=== PATIENT | female | born 1985 | race African-American/Black ===

== ENCOUNTER 2018-12-23 21:45 | Inpatient (IN) | payer OTHER, SELFPAY ==
[~2018-12-23 21:45] MED LIST: Iopamidol 370 76% 100 ML VIAL ONE
--- NOTE | 2018-12-23 22:28 | RAD ---
EXAM: Chest one view: HISTORY: Shortness of breath/chest pain, headache COMPARISON: None FINDINGS: Heart size: Within normal limits. Lungs: Clear of acute process. No evidence for pneumonia, pleural effusion, acute edema, or pneumothorax, or other significant acute process. IMPRESSION: No significant acute intrathoracic disease.
[2018-12-23 22:33] LABS: Hemoglobin 10.9 g/dL (12.0-16.0); Mean Corpuscular Volume 82.2 fL (78.0-98.0); Red Blood Cell (RBC) Count 4.23 mill/uL (4.20-5.40); White Blood Cell (WBC) Count 7.5 thou/uL (4.8-10.8)
[2018-12-23 22:37] LABS: Prothrombin Time 12.7 SEC (12.0-14.7)
[2018-12-23 22:38] LABS: PTT 29.7 SEC (22.9-36.1)
[2018-12-23 22:46] LABS: ALT (SGPT) 13 U/L (8-55); AST (SGOT) 23 U/L (5-34); Albumin 3.9 g/dL (3.5-5.0); Alkaline Phosphatase 60 U/L (40-150); Anion Gap 13 mmol/L (10-20); BUN (Urea Nitrogen) 12 mg/dL (7.0-18.7); Bilirubin, Total 0.2 mg/dL (0.2-1.2); Calc. Creatinine Clearance 0 mL/min (70-130); Calcium 9.5 mg/dL (7.8-10.44); Carbon Dioxide 18 mmol/L (22-29); Chloride 110 mmol/L (98-107); Estimated GFR-MDRD 65; Globulin 3.3 g/dL (2.4-3.5); Glucose 88 mg/dL (70-105); Lipase 44 U/L (8-78); Magnesium 1.9 mg/dL (1.6-2.6); Protein, Total 7.2 g/dL (6.0-8.3); Sodium 137 mmol/L (136-145)
[2018-12-23 22:48] LABS: #Eosinphils 0.1 thou/uL (0.0-0.7); #Lymphocytes 2.2 thou/uL (1.20-3.40); #Monocytes 0.6 thou/uL (0.11-0.59); #Neutrophils 4.6 thou/uL (1.40-6.50); %Basophils 0.5 % (0.0-1.0); %Eosinophils 1.3 % (0.0-10.0); %Lymphocytes 28.9 % (21.0-51.0); %Monocytes 7.6 % (0.0-10.0); %Neutrophils 61.6 % (42.0-75.0); Anisocytosis SLIGHT = 6-15 cells (100X) (0-5/hpf); Hypochromia SLIGHT = 6-15 cells (100X) (0-5/hpf); MDiff Complete? YES; Mean Corpuscular HGB CONC 31.4 g/dL (32.0-36.0); Mean Corpuscular Hemoglobin 25.8 pg (27.0-31.0); Mean Platelet Volume 7.8 fL (7.4-10.4); Ovalocytes SLIGHT = 2-5 cells (100X) (0-1/hpf); Platelet Count 403 thou/uL (130-400); Polychromasia SLIGHT = 2-3 cells (100X) (0-2/hpf); RBC Distribution Width 20.4 % (11.5-14.5)
[2018-12-23] MEDS ORDERED: diphenhydrAMINE 50 MG/ML VIAL ONE (22:57)
[2018-12-23] MEDS ORDERED: Ketorolac Tromethamine 30 MG/ML VIAL ONE (22:57)
[2018-12-23] MEDS ORDERED: Metoclopramide HCl 10 MG/2 ML VIAL ONE (22:57)
--- NOTE | 2018-12-23 23:03 | CT ---
EXAM: Brain CTWithout contrast: HISTORY: Shortness of breath, chest pain, headache COMPARISON: None FINDINGS: No focal mass or midline shift. No intra or extra-axial hemorrhage. Sinus mucosal disease most marked involving the right maxillary sinus with probable air-fluid level. The mastoids are clear. IMPRESSION: No mass or bleed or other significant acute intracranial process. Sinus mucosal changes with probable air-fluid level in the right maxillary sinus.
--- NOTE | 2018-12-23 23:37 | CT ---
EXAM: CT angiogram of the head including 3-D rendering: HISTORY: Headache arteritis COMPARISON: None FINDINGS: Marginal intracranial arterial opacification. Visualized vertebral and basilar arteries: Small caliber right vertebral artery and dominant left carmel tebral artery. Right and left intracranial internal carotid arteries: Unremarkable. Right and left Anterior and posterior cerebral arteries: Unremarkable. Right and left middle cerebral arteries: Unremarkable. No evidence for an M1 segment occlusion. No evidence for intracranial aneurysm. No evidence for significant arterial narrowing or stenosis. IMPRESSION: No significant major branch occlusion or stenosis. No evidence for intracranial aneurysm. EXAM: CT angiogram of the neck including 3-D rendering: HISTORY: Chest pain, headache, history of arteritis. COMPARISON: None FINDINGS: There is very poor opacification particularly in the lower neck. The common carotid arteries do not h ave contrast within them from their origins up to the bifurcation region. The vertebral artery origins are poorly seen. Right subclavian artery is poorly seen. This may be explained by very poor t iming bolus. Although the possibility of total occlusion of both the right and left common carotid arteries as well as occlusive changes of the right subclavian artery are potential possibilities in a patient with known long-standing Takayasu's arteritis Right common, internal, and external carotid arteries:The visualized internal and external carotid ar teries are unremarkable. Left common, internal, and external carotid arteries:The visualized internal and external carotid art eries are unremarkable. Right and left vertebral arteries and basilar artery:Small caliber right vertebral artery. Soft tissue neck demonstrates no evidence for significant adenopathy, mass, or abnormal fluid collect ion. IMPRESSION: No contrast identified within the entire right and left common carotid arteries, the origins of the r ight and left vertebral arteries are poorly seen. Lack of contrast in the right subclavian artery with a very poorly defined innominate artery. Conceivably these could represent chronic long-standing occlusions. I still feel that there is some component of poor bolus timing which may account for some or all of these changes. Findings were discussed with Dr. Restrepo in the emergency room. Suggestion was made for a follow-up c arotid duplex ultrasound with attention to the common carotid arteries to differentiate between abnormal total occlusion versus poor bolus timing on the CTA exam. CODE CR
[2018-12-23] MEDS ORDERED: methylPREDNISolone Sod Succ/PF 125 MG/2 ML VIAL ONE (23:49)
[2018-12-23 23:58] LABS: Bilirubin Negative (Negative); Blood, Urine Negative (Negative); Clarity CLOUDY (Clear); Glucose, Urine (Dipstick) Negative (Negative); Leukocyte Negative (Negative); Nitrite Negative (Negative); Protein, Urine (Dipstick) Negative (Neg-Trace); Urobilinogen 0.2 mg/dL (0.2-1.0)
[2018-12-24 00:01] LABS: Pregnancy Test - Urine (BHCG) Negative (Negative); Pregu Control Background? CLEAR/WHITE (CLR/WHITE); Pregu Control Bar Appear? YES (CONTROL BAR); Specific Gravity 1.039 (1.002-1.036)
[2018-12-24] MEDS ORDERED: Acetaminophen 325 MG TAB PO PRN (01:43)
[2018-12-24] MEDS ORDERED: Ondansetron PF 4 MG/2 ML Vial IVP PRN (01:43)
[2018-12-24] MEDS ORDERED: Ondansetron ODT 4 MG TAB SL PRN (01:43)
[2018-12-24] MEDS ORDERED: HYDROcodone/Acetaminophen 5/325 mg Tablet PO PRN ×4 (01:43→21:18)
[2018-12-24] MEDS ORDERED: Bacteriostatic Water 30 ML VIAL FS PRN (02:17)
[2018-12-24 02:29] LABS: Troponin I Less than 0.010 ng/mL (< 0.028)
--- NOTE | 2018-12-24 03:16 | HP ---
PRIMARY CARE PHYSICIAN: [facility]. CHIEF COMPLAINT: Chest pain, vision blurring, headaches, and shortness of breath. History is mainly obtained by the patient's mother at bedside. The patient is a poor historian. Case has been discussed with admitting ER physician, Dr. Restrepo. Electronic medical records have been reviewed. HISTORY OF PRESENT ILLNESS: Ms. 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 She reports that this was diagnosed many years ago in [place] by angiogram. Since then, she has been on and off on steroids. She has known history of carotid artery occlusion and is on Xarelto, aspirin as well as Pletal. She has not been on steroids as she has recently moved to this area and is trying to establish care. She presented to the emergency room with multitude of various symptoms. She reports that she has been having some chest discomfort for the last 2 days as well as some headache for the last 2 weeks. She also reports on and off shortness of breath for one month. She also started having some blurred vision yesterday which has now improved. She denies any recent illnesses. She denies any fever or chills. She denies any leg claudication. She does have some jaw claudication and tenderness in the temporal area. She also reports anemia with hemoglobin 7.2 three weeks ago. She denies any history of blood clot in the lungs, but reports that she had a history of blood clot in the right arm in 2017. She reports compliance with her medications. With these multitude of symptoms and complicated past medical history without any record in our EMR: The patient presented to the ER. Her blood pressure was 145/90, pulse of 97, otherwise hemodynamically stable. She underwent a CT scan of the brain for complaints of headache, but did not show any acute stroke. She then underwent a CT angio of the head and neck, which showed complete occlusion of the right and left entire common carotid artery. Lack of contrast was also noticed in the right subclavian artery with a very poorly defined innominate artery. The radiologist felt that this could represent chronic long-standing occlusion. Her chest x-ray did not show any acute changes. She was found to have an ESR of 45, hemoglobin of 10.9 in the ER. Coagulation studies were unremarkable. Her GFR was 65 with creatinine slightly increased to 1.15. Urine test was negative. The patient was given 1 dose of Solu-Medrol 125 mg in the ER along with IV fluids and Toradol. She is now being admitted for further evaluation and care. The carotid Doppler ultrasound is ordered for the neck and upper chest for better evaluation of the arterial system. PAST MEDICAL HISTORY: 1. Takayasu with unknown extent. 2. History of right upper extremity DVT, currently on Xarelto. 3. History of stroke in 2014, on aspirin and Pletal. 4. Dyslipidemia. 5. Seizures. PAST SURGICAL HISTORY: 1. Angiogram in the past. 2. Cholecystectomy. 3. Back surgery in 2018. PSYCHIATRIC HISTORY: No anxiety. No depression. SOCIAL HISTORY: The patient is currently in school. She does not have insurance, but is trying to get Indigent care. She is currently living with her mother locally. No history of drug, tobacco, or alcohol abuse. FAMILY HISTORY: No significant family history of any bleeding or clotting disorders. No history of stroke or coronary artery disease in her family. HOME MEDICATIONS: As follows; 1. Xarelto 20 mg at bedtime. 2. Atorvastatin 20 mg at bedtime. 3. Pletal 100 mg p.o. b.i.d. 4. Topiramate 50 mg p.o. a.c. 5. Aspirin 81 mg daily. 6. Ferrous gluconate mg p.o. b.i.d. ALLERGIES: NO KNOWN MEDICATION ALLERGIES. REVIEW OF SYSTEMS: A 14-point review of systems is done and is negative except for those mentioned in the history and physical. LABORATORY DATA: Hemoglobin 10.9 which is largely microcytic in nature. Platelet count of 403, WBCs within normal limits. Coagulation studies within normal limits. Serum chemistry; chloride 110, bicarb 18, BUN 12, creatinine 1.15. Troponin less than 0.010. C-reactive protein less than 0.50. ESR is 45. Urinalysis shows trace ketones, otherwise unremarkable. Urine test is negative. Chest x-ray by my review shows no evidence of pleural effusion, edema, or infiltrate. CT scan of the brain by my review shows no acute hemorrhage or acute infarction or masses. CT angio as per the HPI. PHYSICAL EXAMINATION: VITAL SIGNS: Upon presentation; blood pressure 145/90, pulse of 97, respirations 16, saturating 98% on room air, afebrile. GENERAL: No acute distress, lying comfortably in bed, appears nontoxic. HEENT: Mucous membrane is moist and pink. No oropharyngeal exudate or erythema. Head is normocephalic and atraumatic. Pupils are equal and reactive to light and accommodation. Extraocular movement intact. NECK: Supple without any lymphadenopathy, JVD, or bruit. CHEST: Clear to auscultation without any wheezing, rales, or rhonchi. HEART: Rhythm is regular without any murmurs, rubs, or gallops. ABDOMEN: Soft, nontender, and nondistended with positive bowel sounds. EXTREMITIES: Free of any cyanosis, clubbing, or edema. NEUROLOGICAL: Nonfocal. SKIN: Free of any rashes or bruises. Feels warm and dry to touch. PSYCHIATRIC: Normal affect. IMPRESSION AND PLAN: 1. Chest pain. I am not sure if the patient's symptoms are because of her arteritis history. We will try to get an MRA of her chest to prevent further contrast exposure instead of a CT angio. Because of a variety of presenting symptoms and her past history of arteritis, we will treat her with high dose of IV steroids and request consultation by the Cardiovascular Surgery for possible angiogram and Rheumatology for further recommendation including use of immunosuppressants and establishment of care for long-term care of this patient. There are no signs or symptoms to suggest postop pulmonary embolism at this time. The patient is compliant with Xarelto, which will be restarted. 2. Headache. The patient has complete occlusion of bilateral common carotid arteries consistent with her history of Takayasu arteritis. She will be treated with IV steroids to reduce inflammation at this time. Once again, for the angiogram and further followup, we ordered to establish full extent of her disease. We will try to get her results from her physician in [place]. Meanwhile, we will continue aspirin statin, Pletal, and Xarelto. 3. Chronic anemia. She has microcytic hypochromic anemia. We will continue her iron supplements for now. 4. History of seizure disorder. Continue topiramate. 5. History of deep venous thrombosis upper extremity. Continue with Xarelto for now. 6. History of stroke. The patient's presenting symptoms are not consistent with acute cerebrovascular accident. Continue aspirin, statin, Pletal, and Xarelto for now. She is at high risk for stroke. 7. Deep venous thrombosis and gastrointestinal prophylaxis. The patient is already on Xarelto. DISPOSITION: Ms. Luo is currently being admitted to the hospital for possible acute decompensation of Takayasu arteritis. She will be treated with high-dose steroids and we will request consultation with Rheumatology as she has a complicated past medical history of her rare diagnosis. She will also need to establish care locally with the printing press operator apprentice and cardiovascular surgery closely. I have discussed her care with her mother at bedside, who verbalized understanding. Estimated length of stay at this time is at least 2 to 3 midnights. Job ID: [id number]
[2018-12-24 05:15] LABS: Anion Gap 10 mmol/L (10-20); BUN (Urea Nitrogen) 17 mg/dL (7.0-18.7); Calc. Creatinine Clearance 96 mL/min (70-130); Calcium 9.1 mg/dL (7.8-10.44); Carbon Dioxide 20 mmol/L (22-29); Chloride 111 mmol/L (98-107); Estimated GFR-MDRD 65; Glucose 111 mg/dL (70-105); Potassium 4.2 mmol/L (3.5-5.1); Sodium 137 mmol/L (136-145)
[2018-12-24 05:16] LABS: #Lymphocytes 0.6 thou/uL (1.20-3.40); #Neutrophils 6.5 thou/uL (1.40-6.50); %Lymphocytes 8.6 % (21.0-51.0); %Monocytes 0.6 % (0.0-10.0); %Neutrophils 90.8 % (42.0-75.0); Elliptocytes SLIGHT = 2-5 cells (100X) (0-1/hpf); Hemoglobin 11.1 g/dL (12.0-16.0); Hypochromia SLIGHT = 6-15 cells (100X) (0-5/hpf); MDiff Complete? YES; Mean Corpuscular HGB CONC 31.6 g/dL (32.0-36.0); Mean Corpuscular Hemoglobin 26.5 pg (27.0-31.0); Mean Corpuscular Volume 83.9 fL (78.0-98.0); Mean Platelet Volume 8.1 fL (7.4-10.4); Platelet Count 381 thou/uL (130-400); RBC Distribution Width 20.2 % (11.5-14.5); White Blood Cell (WBC) Count 7.2 thou/uL (4.8-10.8)
[2018-12-24 05:20] LABS: Troponin I Less than 0.010 ng/mL (< 0.028)
[2018-12-24] MEDS ORDERED: predniSONE 20 MG TAB PO SCH (08:00)
[2018-12-24] MEDS: Aspirin 81 mg Enteric Coated Tablet PO SCH (08:17)
[2018-12-24] MEDS: Cilostazol 100 MG TAB PO SCH ×2 (08:17→15:53)
[2018-12-24] MEDS: Ferrous Gluconate 324 MG TAB PO SCH ×2 (08:18→20:03)
[2018-12-24] MEDS: methylPREDNISolone Sod Succ/PF 125 MG/2 ML VIAL IVP SCH ×2 (08:18→20:03)
[2018-12-24] MEDS: Topiramate 25 MG TAB PO SCH ×3 (08:29→16:05)
--- NOTE | 2018-12-24 08:49 | ULT ---
CAROTID ULTRASOUND WITH DOPPLER: Date: 12/24/18 HISTORY: Abnormal CT angiogram of neck. Bilateral carotid occlusion is suspected. COMPARISON: None. CORRELATION: CT angiogram of neck dated 12/23/18. TECHNIQUE: Thompson scale, color flow, Doppler imaging, and spectral waveform analysis performed of the cervical carotid and vertebral arteries. FINDINGS: RIGHT CAROTID: There is occlusion of the distal common carotid artery. There is retrograde flow in the external tavares tid artery. The internal carotid artery has appropriate directional flow. Peak systolic velocity in t he internal carotid artery is 30.3 cm/second. LEFT CAROTID: There is occlusion of the left common carotid artery. There is reversal of flow in the external carot id artery. There is appropriate directional flow of the internal carotid artery. Peak systolic veloci ty in the internal carotid artery is 93.6 cm/second. Right vertebral artery is not seen. There is appropriate directional flow in the left vertebral arter y. IMPRESSION: Bilateral common carotid artery occlusion. There is reversal of flow in bilateral external carotid ar teries, which likely supply the left and right internal carotid artery, which have appropriate direct ional flow. POS: OFF
--- NOTE | 2018-12-24 13:11 | MRI ---
MRA OF THE CHEST WITH AND WITHOUT CONTRAST: INDICATION: History of Takayasu arteritis, and chest pain. COMPARISON: CTA of the head and neck dated 12/23/2018. CONTRAST: 20 cc of MultiHance. FINDINGS: As seen on the comparison CTA examination is nonvisualization of the internal carotid arteries consis tent with complete occlusion. There is mild multifocal narrowing involving the proximal left subclav razia artery. There is complete occlusion of the mid to distal right subclavian artery. Remaining vis ualized descending thoracic aorta, aortic arch, and ascending aorta demonstrate normal caliber. Visu alized aspects of the celiac and SMA arteries are widely patent. IMPRESSION: 1. Complete occlusion of the internal carotid arteries. 2. 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 3. Multifocal mild narrowing involving the proximal left subclavian artery. POS: CET
--- NOTE | 2018-12-24 17:18 | CON ---
DATE OF CONSULTATION: 12/24/2018 REQUESTING PHYSICIAN: Marta Dumont MD CHIEF COMPLAINT: Headache, blurry vision, and chest pain. HISTORY OF PRESENT ILLNESS: The patient is a 33-year-old black woman with Takayasu arteritis. About 6 months ago, she moved here from [place] where the diagnosis was made. She presented last night with headache, blurry vision, and chest pain. Her arteritis tends to have episodic flares that were treated with steroids, and her most recent flare was about 3 weeks ago. She says that she was seen at [facility], put on steroids for about a week. Prior to that, shortly before leaving [place], her last flare up was about 6 months ago. She says that she has a known occlusion of both carotid arteries and compromise of her subclavians. The history of previous strokes and a known DVT in the right arm was elicited. A CT angiography was done as part of her ER evaluation, which showed occlusion of her carotid arteries. Wording on the radiologist's report discussed consideration for vascular surgical evaluation and conventional arteriography to address the potential for her occlusive disease being an artifact of the CT angiography technique. The patient has not had any focal symptoms and reports longstanding knowledge that her carotids are occluded. PAST MEDICAL HISTORY: Also significant for dyslipidemia and seizures. HOME MEDICATIONS: 1. Xarelto. 2. Atorvastatin. 3. Pletal. 4. Topamax. 5. Baby aspirin. 6. Iron. ALLERGIES: SHE DENIES ANY MEDICAL ALLERGIES. HABITS: She does not smoke. FAMILY HISTORY: Negative for any known bleeding or hypercoagulable disease. No history of stroke or coronary artery disease. REVIEW OF SYSTEMS: Only pertinent for her headache, blurred vision, and chest discomfort. PHYSICAL EXAMINATION: GENERAL: She is now comfortable appearing. VITAL SIGNS: Temperature is 98, heart rate is 85, blood pressure is 117/73. I was not able to palpate any radial pulses, but she has easily palpable dorsalis pedis pulses. Her CT angiography shows occlusion of both common carotids with intact carotid bifurcations bilaterally. Ultrasonography demonstrates retrograde flow through the external carotids into the internal carotids. She also has occluded subclavian beyond the vertebrals on the left and at the origin on the right. IMPRESSION AND RECOMMENDATIONS: I had been consulted to perform arteriography. She does not have ischemic extremities and her carotid occlusions are apparently well documented. They are at least corroborated by ultrasonography here and I do not think that arteriography is indicated. Job ID: [id number]
[2018-12-24] MEDS ORDERED: Atorvastatin Calcium 20 MG TAB PO SCH (21:00)
[2018-12-24] MEDS ORDERED: Rivaroxaban 10 MG TAB PO SCH (21:00)
[2018-12-25 06:25] LABS: Hemoglobin 10.4 g/dL (12.0-16.0); Platelet Count 371 thou/uL (130-400)
[2018-12-25 07:14] LABS: Anion Gap 11 mmol/L (10-20); BUN (Urea Nitrogen) 9 mg/dL (7.0-18.7); Calc. Creatinine Clearance 136 mL/min (70-130); Calcium 8.8 mg/dL (7.8-10.44); Carbon Dioxide 16 mmol/L (22-29); Chloride 114 mmol/L (98-107); Estimated GFR-MDRD Greater than 90; Glucose 106 mg/dL (70-105); Potassium 3.8 mmol/L (3.5-5.1); Sodium 137 mmol/L (136-145)
[2018-12-25] MEDS ORDERED: Topiramate 25 MG TAB PO SCH (09:00)
[2018-12-25] MEDS: Cilostazol 100 MG TAB PO SCH ×2 (09:08→17:11)
[2018-12-25] MEDS: Aspirin 81 mg Enteric Coated Tablet PO SCH (09:09)
[2018-12-25] MEDS: Ferrous Gluconate 324 MG TAB PO SCH (09:09)
[2018-12-25] MEDS: methylPREDNISolone Sod Succ/PF 125 MG/2 ML VIAL IVP SCH (09:09)
--- NOTE | 2018-12-25 09:12 | PDOC.EVN ---
Event Note - Event Note Event Note: spoke with pt and family about pt's medical illness. She was dx with this about 2y ago. I did discuss the case with rheumatology who will come by to see her yudy. will get records from [place].
[2018-12-25] MEDS ORDERED: Methotrexate Sodium 2.5 MG TAB PO SCH (10:30)
[2018-12-25] MEDS ORDERED: Acetaminophen/Codeine 30-300mg Tablet PO PRN (10:42)
[2018-12-25 11:16] LABS: Cardiac Risk 1.9 (Less than 4.5)
[2018-12-25 11:33] LABS: HBCM Index 0.05 S/CO (0-0.79); HBSAg Index 0.31 S/CO (0-0.99); Hep A IgM AB Non-Reactive (NonReactive); Hep A IgM S/CO 0.13 S/CO (0-0.79); Hep B Surf Ag Non-Reactive S/CO (NonReactive); Hep C IgG Ab Non-Reactive (NonReactive); Hep C Index 0.05 S/CO (0-0.79); Hepatitis B Core IgM Abs Non-Reactive (NonReactive)
[2018-12-25 12:42] VITALS: BMI 33.3
[2018-12-25 18:33] VITALS: BP 114/70; TEMP 98.6
--- NOTE | 2018-12-26 04:55 | DIS ---
DATE OF ADMISSION: 12/24/2018 DATE OF DISCHARGE: 12/25/2018 DISCHARGE DIAGNOSES: 1. Chest pain. 2. Headaches. 3. Chronic anemia. 4. History of seizure disorder. 5. Deep vein thrombosis. 6. Takayasu. HOSPITAL COURSE: The patient is a 33-year-old female who has been diagnosed with Takayasu about 2 years ago according to her at [facility], this is in [place]. She also has been following in [facility] in [place]. The patient initially came in with some chest pain and a headache that she had a CT angio, which did not show any acute abnormalities, but her CT angio did indicate no contrast identification within the entire right and left common carotid origins, also right and left vertebral arteries are poorly seen. Lack of contrast seen in the right subclavian artery with right poorly defined innominate artery. Conceivably these could represent chronic long-standing occlusions. At this time, carotid Dopplers were ordered based on recommendations per Radiology. The Dopplers indicated bilateral common carotid artery occlusion. There is a reverse of flow in bilateral external carotid arteries which likely supplies the left than the right internal carotid arteries. She also had a chest MRA which indicated complete occlusion of the internal carotid arteries, complete occlusion of the right subclavian artery and multifocal mild narrowing involving the proximal left subclavian artery. The patient at this time was seen by CV surgeon and given this chronic occlusions, there was no intervention that was done. The patient's symptoms continued to improve. Her troponin x3 were negative. Also, she was seen by Rheumatology and there was a question that why she was not started on any kind of immunotherapy, so she at this time was started on methotrexate. I did educate her about not getting while she was on methotrexate. Her level was negative. The patient understood. Also, she will follow up with Rheumatology and primary in the next couple of weeks. DISCHARGE MEDICATIONS: She was on: 1. Pepcid 20 b.i.d. 2. Folic acid 1 mg daily. 3. Methotrexate, she was given a dose of 10 mg and she will take it every 7 days. 4. She was given a steroid dose pack. 5. She was on Xarelto 20 mg daily. 6. Atorvastatin one tablet p.o. at bedtime. 7. Topamax 1 p.o. a.c. 8. Cilostazol 100 mg b.i.d. 9. Iron 324 b.i.d. 10. Aspirin 81 mg daily. PHYSICAL EXAMINATION: VITAL SIGNS: Temperature 98.6, pulse 85, respirations 18, 98% on room air, blood pressure 114/70. GENERAL: She is awake, alert, and oriented x3. Does not appear in any distress. CV: S1 and S2 present. No murmurs, rubs, or gallops. ABDOMEN: Soft, nontender. Bowel sounds are present x2. EXTREMITIES: No edema. DISCHARGE INSTRUCTIONS: Again, she will be discharged home. She will follow up with her primary and Rheumatology. I have advised her not to get while on methotrexate and also medication compliance. I also have told her to take her prednisone with food and we did get records from [facility]; however, we did send for records from the [facility] in [place] that is where she was diagnosed with the Takayasu. Job ID: [id number]
[2018-12-26] MEDS ORDERED: Folic Acid 1 MG TAB PO SCH (09:00)
[2019-01-01] MEDS ORDERED: Methotrexate Sodium 2.5 MG TAB PO SCH (09:00)
== END 2018-12-25 18:45 | disposition home or self-care (01) | DRG 547 ==
LOC: ERS 21:45 → 2NO 12-24 01:05
PROVIDERS: ADMIT Internal Medicine; ATTEND Internal Medicine
DX: M31.4 Aortic arch syndrome [Takayasu] (principal); E78.5 Hyperlipidemia, unspecified; I65.23 Occlusion and stenosis of bilateral carotid arteries; G40.909 Epilepsy, unspecified, not intractable, without status epilepticus; D64.9 Anemia, unspecified; Z90.49 Acquired absence of other specified parts of digestive tract; Z79.899 Other long term (current) drug therapy; Z86.718 Personal history of other venous thrombosis and embolism; Z79.01 Long term (current) use of anticoagulants; Z79.82 Long term (current) use of aspirin
CPT/HCPCS: 36415; 70450; 70496; 70498; 71045; 71555; 80048; 80053; 80061; 80074; 81003; 81025; 83690; 83735; 84484; 84702; 85014; 85018; 85025; 85049; 85610; 85652; 85730; 86140; 86850; 86900; 86901; 93005; 93880; C8911; J1200; J1885; J2765; J2930; J8610; Q9967

== ENCOUNTER 2019-05-06 18:28 | Emergency (ER) | payer OTHER, SELFPAY ==
[~2019-05-06 18:28] MED LIST changes: -Iopamidol 370 76% 100 ML VIAL ONE; +Iopamidol-370 76% 500 ML 1 ML ONE
[2019-05-06 19:23] LABS: #Eosinphils 0.1 thou/uL (0.0-0.7); #Lymphocytes 1.8 thou/uL (1.20-3.40); #Monocytes 0.6 thou/uL (0.11-0.59); #Neutrophils 4.2 thou/uL (1.40-6.50); %Basophils 0.4 % (0.0-1.0); %Eosinophils 1.2 % (0.0-10.0); %Lymphocytes 26.3 % (21.0-51.0); %Monocytes 9.4 % (0.0-10.0); %Neutrophils 62.7 % (42.0-75.0); Hemoglobin 9.5 g/dL (12.0-16.0); Mean Corpuscular HGB CONC 32.4 g/dL (32.0-36.0); Mean Corpuscular Hemoglobin 26.5 pg (27.0-31.0); Mean Platelet Volume 6.9 fL (7.4-10.4); Platelet Count 438 thou/uL (130-400); RBC Distribution Width 15.4 % (11.5-14.5); Red Blood Cell (RBC) Count 3.57 mill/uL (4.20-5.40); White Blood Cell (WBC) Count 6.7 thou/uL (4.8-10.8)
[2019-05-06 19:31] LABS: BHCG - Serum Negative (NEGATIVE); Pregs Control Background? CLEAR/WHITE (CLR/WHITE); Pregs Control Bar Appear? YES (CONTROL BAR)
[2019-05-06 19:38] LABS: INR-International Normal Ratio 1.1; PTT 31.3 SEC (22.9-36.1)
[2019-05-06 19:42] LABS: ALT (SGPT) 9 U/L (8-55); AST (SGOT) 18 U/L (5-34); Albumin 3.9 g/dL (3.5-5.0); Alkaline Phosphatase 53 U/L (40-110); Anion Gap 10 mmol/L (10-20); BUN (Urea Nitrogen) 10 mg/dL (7.0-18.7); Bilirubin, Total 0.2 mg/dL (0.2-1.2); Calc. Creatinine Clearance 0 mL/min (70-130); Calcium 8.7 mg/dL (7.8-10.44); Carbon Dioxide 23 mmol/L (22-29); Chloride 111 mmol/L (98-107); Estimated GFR-MDRD 74; Globulin 3.1 g/dL (2.4-3.5); Glucose 93 mg/dL (70-105); Potassium 3.6 mmol/L (3.5-5.1); Sodium 140 mmol/L (136-145)
--- NOTE | 2019-05-06 20:14 | CT ---
CT head noncontrast HISTORY: Weakness. Altered mental status. Nausea. COMPARISON: 12/23/2018. FINDINGS: There is no evidence of acute intracranial hemorrhage or infarct. The ventricles appear nor mal in size, shape and position. There is no mass effect or shift of midline structures. Mucosal thickening within the left maxillary sinus. IMPRESSION: No acute intracranial abnormalities are demonstrated.
--- NOTE | 2019-05-06 20:31 | CT ---
CT arteriogram neck with IV contrast and 3-D imaging CT arteriogram head with IV contrast and 3-D imaging CT brain with IV contrast HISTORY: Weakness. Tongue numbness. Carotid occlusion. COMPARISON: 12/23/2018. FINDINGS: Occlusion of the origin of each common carotid artery at the aortic arch is again demonstra tiana. The proximal right subclavian artery is also occluded with reconstitution via a small right vertebral artery. The left vertebral artery remains widely patent to the level of an intact [place]. There is also some collateralization from the external carotid arteries to each small internal carotid artery. Good flow into each cerebral and cerebellar system. No focal filling defects or aneurysm evident. No enhancing brain lesions. Fluid layers within the left maxillary sinus with mucosal thickening evident. IMPRESSION: Chronic occlusion of the left carotid artery and the right brachiocephalic artery and rig ht common carotid artery. Intracranial arterial flow via collaterals from the left vertebral artery and the external carotid arteries. No acute intracranial abnormalities are demonstrated. Findings are stable. Left maxillary sinusitis.
[2019-05-06 21:07] LABS: Bacteria/HPF None Seen HPF (None Seen); Bilirubin Negative (Negative); Blood, Urine 1+ (Negative); Clarity Clear (Clear); Glucose, Urine (Dipstick) Normal (Negative); Leukocyte Negative Leu/uL (Negative); Nitrite Negative (Negative); Protein, Urine (Dipstick) Negative (Neg-Trace); RBC/HPF 21-50 HPF (0-3); Squamous Epithelial None Seen HPF (0-3); Urobilinogen Normal mg/dL (Less than 2); WBC/HPF None Seen HPF (0-3)
== END 2019-05-06 21:16 | disposition home or self-care (01) ==
LOC: ERS 18:28
DX: R53.1 Weakness (principal); E78.5 Hyperlipidemia, unspecified; Z86.73 Personal history of transient ischemic attack (TIA), and cerebral infarction without residual deficits; Z79.82 Long term (current) use of aspirin; Z79.899 Other long term (current) drug therapy; Z79.01 Long term (current) use of anticoagulants
CPT/HCPCS: 70450; 70496; 70498; 80053; 81003; 81015; 82550; 84484; 84703; 85025; 85610; 85730; 87086; 93005; Q9967

== ENCOUNTER 2019-07-08 16:29 | Inpatient (IN) | payer MEDICAID, SELFPAY ==
[2019-07-08 16:57] LABS: #Eosinphils 0.1 thou/uL (0.0-0.7); #Monocytes 0.6 thou/uL (0.11-0.59); #Neutrophils 3.9 thou/uL (1.40-6.50); %Basophils 0.7 % (0.0-1.0); %Eosinophils 0.9 % (0.0-10.0); %Lymphocytes 30.5 % (21.0-51.0); %Monocytes 8.4 % (0.0-10.0); %Neutrophils 59.5 % (42.0-75.0); Hemoglobin 8.2 g/dL (12.0-16.0); Mean Corpuscular HGB CONC 31.3 g/dL (32.0-36.0); Mean Corpuscular Hemoglobin 22.6 pg (27.0-31.0); Mean Corpuscular Volume 72.3 fL (78.0-98.0); Mean Platelet Volume 7.7 fL (7.4-10.4); Platelet Count 555 thou/uL (130-400); RBC Distribution Width 16.8 % (11.5-14.5); Red Blood Cell (RBC) Count 3.63 mill/uL (4.20-5.40); White Blood Cell (WBC) Count 6.5 thou/uL (4.8-10.8)
[2019-07-08 17:04] LABS: BHCG - Serum Negative (NEGATIVE); Pregs Control Background? CLEAR/WHITE (CLR/WHITE); Pregs Control Bar Appear? YES (CONTROL BAR)
[2019-07-08 17:14] LABS: Anisocytosis SLIGHT = 6-15 cells (100X) (0-5/hpf); Elliptocytes SLIGHT = 2-5 cells (100X) (0-1/hpf); Hypochromia SLIGHT = 6-15 cells (100X) (0-5/hpf); MDiff Complete? YES; Microcytosis SLIGHT = 6-15 cells (100X) (0-5/hpf); Ovalocytes SLIGHT = 2-5 cells (100X) (0-1/hpf); Platelet Morphology Comment Appears Increased; Poikilocytosis SLIGHT = 6-15 cells (100X) (0-5/hpf); Polychromasia SLIGHT = 2-3 cells (100X) (0-2/hpf); Schistocytes SLIGHT = 2-5 cells (100X) (0-1/hpf); Target Cells SLIGHT = 2-5 cells (100X) (0-1/hpf); Tear Drops SLIGHT = 2-5 cells (100X) (0-1/hpf)
[2019-07-08 17:24] LABS: ALT (SGPT) 10 U/L (8-55); AST (SGOT) 29 U/L (5-34); Albumin 4.1 g/dL (3.5-5.0); Alkaline Phosphatase 54 U/L (40-110); Anion Gap 10 mmol/L (10-20); BUN (Urea Nitrogen) 7 mg/dL (7.0-18.7); Bilirubin, Total 0.3 mg/dL (0.2-1.2); Calc. Creatinine Clearance 0 mL/min (70-130); Calcium 8.8 mg/dL (7.8-10.44); Carbon Dioxide 22 mmol/L (22-29); Chloride 110 mmol/L (98-107); Estimated GFR-MDRD 72; Globulin 3.7 g/dL (2.4-3.5); Glucose 92 mg/dL (70-105); Potassium 4.1 mmol/L (3.5-5.1); Protein, Total 7.8 g/dL (6.0-8.3); Sodium 138 mmol/L (136-145)
[2019-07-08 17:36] LABS: Bilirubin Negative (Negative); Blood, Urine Negative (Negative); Clarity Clear (Clear); Glucose, Urine (Dipstick) Normal (Negative); Leukocyte Negative Leu/uL (Negative); Nitrite Negative (Negative); Protein, Urine (Dipstick) Negative (Neg-Trace); Urobilinogen Normal mg/dL (Less than 2)
--- NOTE | 2019-07-08 18:43 | CT ---
CT head noncontrast HISTORY: Headache. COMPARISON: 05/06/2019. FINDINGS: There is no evidence of acute intracranial hemorrhage or infarct. Ventricles appear normal in size, shape and position. There is no mass effect or shift of midline structures. Visualized paranasal sinuses now well aerated. IMPRESSION: Normal exam.
[2019-07-08 20:26] LABS: INR-International Normal Ratio 1.1
[2019-07-08] MEDS ORDERED: predniSONE 20 MG TAB ONE (21:26)
[2019-07-08 21:47] LABS: Troponin I Less than 0.010 ng/mL (< 0.028)
[2019-07-09] MEDS ORDERED: Acetaminophen 650 MG Suppository PR PRN (00:33)
[2019-07-09 00:53] LABS: Troponin I 0.025 ng/mL (< 0.028)
[2019-07-09] MEDS ORDERED: Acetaminophen 325 MG TAB ONE (01:03)
[2019-07-09] MEDS: Acetaminophen 325 MG TAB PO PRN ×3 (01:08→19:40)
--- NOTE | 2019-07-09 02:19 | HP ---
TIME OF ASSESSMENT: 2300 hours. CHIEF COMPLAINT: Syncope, shortness of breath, and chest pain. HISTORY OF PRESENT ILLNESS: Ms. Luo is a pleasant 33-year-old woman with a known history of Takayasu arteritis, who presents following a syncopal episode that occurred yesterday evening. The patient states she was in bed and got up to use a restroom and felt lightheaded, but continued to walk to use the bathroom and fell backwards. She states she was able to get up on her knees. She does not recall if she had any loss of consciousness and if she did, it was very brief. She states that her sister came and helped her back into bed. Reports feeling lightheaded and "woozy" throughout the day today, prompting her to come into the emergency department. She reports having mild chest discomfort since yesterday and states that it occurs whenever she takes a deep breath in. She states it is in the center of her chest. She denies any cough or hemoptysis. She does have a known history of right upper extremity DVT and is on Xarelto. She reports feeling short of breath for the last several days. Denies any fevers, chills, or sweats. No nausea or vomiting. No abdominal pain. Denies any urinary symptoms. Does report having heavy menses and her last menstrual period started on June 26. All other review of systems is negative. In the emergency department, she underwent laboratory studies that showed a white count of 6.5, hemoglobin 8.2 compared to 9.5 in April, hematocrit 26.3, MCV 72.3, platelets 555. Sodium 138, potassium 4.1, chloride 110, BUN 7, creatinine 1.06, GFR 72, glucose 92, calcium 9.8. LFTs unremarkable. Troponin negative x2. Albumin 4.1. Serum negative. Urinalysis unremarkable. She had imaging studies including a CT of the brain, which showed no evidence of acute intracranial hemorrhage or infarct. Ventricles appear normal in size, shape, and position. No mass effect, shift, or midline structures. A CT angiogram of the chest was done as well, and per Dr. Carcamo, it showed severe large vessel vasculitis. She was therefore treated with 60 mg of prednisone p.o. Also given 1 L of normal saline. The patient was last admitted in December 2018, at which time she had presented with chest pain, headaches, and Takayasu. At that time, she had been seen by Rheumatology. Apparently, methotrexate had been recommended, however, the patient has not been on this. She was given a dose of 10 mg and I advised to take it every seven days, also discharged on a steroid dose pack. Plans were for her to follow up with Hematology as an outpatient, but it does not appear that she has been seen since then. PAST MEDICAL HISTORY: 1. Takayasu arteritis. 2. Right upper extremity DVT. 3. CVA in 2014. 4. Hyperlipidemia. 5. History of seizures. PAST SURGICAL HISTORY: 1. Angiogram. 2. Cholecystectomy. 3. Orthopedic surgery. 4. Spinal surgery in 2018. SOCIAL HISTORY: The patient lives alone. Denies any alcohol consumption or illicit drug use. No tobacco use. PHYSICAL EXAMINATION: GENERAL: The patient appears well developed, well nourished, who is in no acute distress. VITAL SIGNS: Temperature 99.1, pulse 102, blood pressure 125/76, respirations 20, and O2 saturation 100% on room air. HEENT: Normocephalic and atraumatic. Pupils are equal, round, and reactive to light. Sclerae icterus. Oropharynx is clear. NECK: Supple. No lymphadenopathy. LUNGS: Clear to auscultation bilaterally without wheezes, rales, or rhonchi. CARDIAC: Regular rate and rhythm without audible murmurs, rubs, or gallops. ABDOMEN: Soft, nontender, nondistended. Normoactive bowel sounds present. EXTREMITIES: No lower leg swelling or edema. MUSCULOSKELETAL: The patient with discomfort involving the right hip region. Mild discomfort in the hip with straight leg raise passive and against resistance. No rotation or extremity shortening noted. NEUROLOGIC: Alert and oriented x3. SKIN: Warm and dry. INVESTIGATIONS: As mentioned above in HPI. IMPRESSION AND PLAN: Ms. Luo is a pleasant 33-year-old woman, who is being admitted for management of the following. 1. Takayasu vasculitis. We will continue with 60 mg of prednisone p.o. daily. Consultation placed to Rheumatology for further recommendations. 2. Syncope. The patient is known to have a history of bilateral common carotid artery occlusion based on investigations done during her admission in December 2018. No indication to repeat these studies at this present time. We will obtain an echocardiogram, which she has not had done in over a year. Further imaging as per Day Team. Orthostatic blood pressure requested. The patient is being given IV fluids. She is anemic, which could be a contributing factor. Continue to monitor her hemoglobin. 3. Chronic anemia. Hemoglobin slightly lower from what it was last. No active signs or symptoms of bleeding. Continue to monitor. Consider blood transfusion if needed. She has required blood transfusions in the past. Iron studies have been requested. The patient previously on iron, but states she stops intermittently due to feeling "sick" to her stomach when she is on iron. 4. Deep venous thrombosis. Continue anticoagulation again with no signs or symptoms of bleeding. If she does develop any signs of bleeding, we will need to consider holding anticoagulation. 5. History of seizure disorder. Resume home medications. Goals verified. 6. Chest pain. The patient states it is only when she takes a deep breath. Troponins negative x2. EKG done in the emergency department showed sinus tachycardia with a heart rate of 101. No ST changes or T-wave abnormalities. Continue to trend troponins. 7. Gastrointestinal prophylaxis with famotidine. 8. Code status full. Surrogate decision maker is her mother, Radha Luo. The patient's case was discussed with Dr. Mcqueen, who agrees with the plan of care as described above. Job ID: [id number]
[2019-07-09 05:10] LABS: Iron 10 ug/dL (50-170); Iron Binding Capacity, Total 396 mcg/dL (265-497)
[2019-07-09 05:11] LABS: Anion Gap 9 mmol/L (10-20); BUN (Urea Nitrogen) 9 mg/dL (7.0-18.7); Calc. Creatinine Clearance 0 mL/min (70-130); Calcium 8.9 mg/dL (7.8-10.44); Carbon Dioxide 19 mmol/L (22-29); Chloride 114 mmol/L (98-107); Estimated GFR-MDRD Greater than 90; Glucose 129 mg/dL (70-105); Iron 9 ug/dL (50-170); Iron Binding Capacity, Total 410 mcg/dL (265-497); Potassium 4.8 mmol/L (3.5-5.1); Sodium 137 mmol/L (136-145); Transferrin, Serum 328 mg/dL (180-382)
[2019-07-09 05:13] LABS: #Lymphocytes 0.7 thou/uL (1.20-3.40); #Neutrophils 6.1 thou/uL (1.40-6.50); %Basophils 0.2 % (0.0-1.0); %Eosinophils 0.1 % (0.0-10.0); %Lymphocytes 10.4 % (21.0-51.0); %Monocytes 0.5 % (0.0-10.0); %Neutrophils 88.9 % (42.0-75.0); Hemoglobin 8.7 g/dL (12.0-16.0); Mean Corpuscular HGB CONC 30.7 g/dL (32.0-36.0); Mean Corpuscular Hemoglobin 22.5 pg (27.0-31.0); Mean Corpuscular Volume 73.2 fL (78.0-98.0); Mean Platelet Volume 7.4 fL (7.4-10.4); Platelet Count 536 thou/uL (130-400); RBC Distribution Width 16.7 % (11.5-14.5); Red Blood Cell (RBC) Count 3.87 mill/uL (4.20-5.40); White Blood Cell (WBC) Count 6.9 thou/uL (4.8-10.8)
[2019-07-09 05:47] LABS: Ferritin Less than 2.00 ng/mL (10-291); Vitamin B12 309 pg/mL (211-911)
[2019-07-09 07:25] VITALS: BMI 32.5
--- NOTE | 2019-07-09 07:31 | RAD ---
EXAM: 2 views of the right hip HISTORY: Right hip pain COMPARISON: None FINDINGS: 2 views of the right hip shows no evidence of acute fracture or dislocation. No degenerativ e changes are seen. No soft tissue swelling is present. Contrast is seen in the urinary bladder from recent contrast administration. IMPRESSION: No evidence of acute osseous abnormality.
--- NOTE | 2019-07-09 07:31 | RAD ---
Exam: Single view of the pelvis HISTORY: Pelvic and hip pain COMPARISON: None FINDINGS: A single view the pelvis shows no evidence of acute fracture or dislocation. No degenerativ e changes seen in either hip. Contrast is seen in the urinary bladder from recent contrast administration. IMPRESSION: No evidence of acute osseous abnormality.
[2019-07-09] MEDS: Famotidine/PF 20 mg/2ml Vial SLOW IVP SCH ×2 (08:33→23:03)
[2019-07-09] MEDS ORDERED: predniSONE 20 MG TAB PO SCH (09:00)
--- NOTE | 2019-07-09 13:24 | CT ---
CT arteriogram chest with IV contrast and 3-D imaging HISTORY: Chest pain. COMPARISON: MRI chest 12/24/2018. FINDINGS: There is good contrast opacification of the pulmonary arteries. Bovine origin of the great vessels at the aortic arch. Circumferential wall thickening of the great vessels. Common carotid arteries extremely small. Compensatory enlargement of the left vertebral artery. Nonenlarged, nonspecific lymph nodes within the partially visualized upper retroperitoneum. Gallbladd er is surgically absent. IMPRESSION: No CT evidence of pulmonary embolus. CT findings of severe large vessel vasculitis.
--- NOTE | 2019-07-09 13:31 | PDOC.HOSPP ---
- Subjective Encounter Date: 07/09/19 Encounter Time: 13:29 Subjective: Ms. Luo was seen today in follow-up of syncope. She does not have any new complaints. - Objective Vital Signs & Weight: Vital Signs (12 hours) Temp Pulse Resp BP BP BP BP 07/09/19 11:20 98.3 F 83 16 111/69 07/09/19 07:27 98.2 F 90 18 120/68 118/71 101/67 Pulse Ox 07/09/19 11:20 100 07/09/19 07:27 100 Weight Weight 190 lb Result Diagrams: 07/09/19 04:44 07/09/19 04:44 Hospitalist ROS - Medication Medications: Active Medications Generic Name Dose Route Start Last Admin Trade Name Freq PRN Reason Stop Dose Admin Acetaminophen 650 mg 07/09/19 00:33 07/09/19 11:44 Tylenol PO 650 mg Q4H PRN Administration Headache/Fever/Mild Pain (1-3) Famotidine 20 mg 07/09/19 09:00 07/09/19 08:33 Pepcid SLOW IVP 20 mg Q12HR MORGAN Administration - Exam Eye: PERRL Heart: RRR, no murmur, no gallops, no rubs, normal peripheral pulses Respiratory: CTAB, no wheezes, no rales, no ronchi, normal chest expansion, no tachypnea, normal percussion Gastrointestinal: soft, non-tender, non-distended, normal bowel sounds, no palpable masses, no hepatomegaly, no splenomegaly Extremities: no cyanosis, no clubbing, no edema Hosp A/P (1) Syncope Code(s): R55 - SYNCOPE AND COLLAPSE Status: Acute (2) Takayasu's arteritis Code(s): M31.4 - AORTIC ARCH SYNDROME [TAKAYASU] Status: Chronic - Plan * Syncope- ? etiology- it may be due to the cerebral vascular insufficiency due to the Takayasu disease * Will await CTA of the chest and Echo results * Will consult Cardiology for the abnormality seen on the rhythm strip- ? significance * Also await Rheumatology evaluation
[2019-07-09] MEDS: predniSONE 20 MG TAB PO SCH (19:40)
--- NOTE | 2019-07-09 21:59 | CON ---
DATE OF CONSULTATION: HISTORY OF PRESENT ILLNESS: The patient is a 33-year-old woman, who presented after losing consciousness. The patient has Takayasu's arteritis. In 2014, she suffered a CVA. The patient has been on chronic anticoagulation therapy. The patient presented to the hospital after she suddenly got up and apparently lost consciousness. She did not lose control of her bladder or bowel. PAST MEDICAL HISTORY: Takayasu's syndrome. Seizure disorder, hyperlipidemia, and history of CVA. PAST SURGICAL HISTORY: Back surgery and cholecystectomy. SOCIAL HISTORY: Nonsmoker. FAMILY HISTORY: Positive family history of heart disease. ALLERGIES: NO KNOWN DRUG ALLERGIES. MEDICATIONS: 1. Lipitor 1 tablet daily. 2. Xarelto 20 at bedtime. 3. Cilostazol 100 b.i.d. 4. Aspirin 81 daily. PHYSICAL EXAMINATION: GENERAL: This is a well-developed woman, in no acute distress. VITAL SIGNS: Blood pressure 107/67. NECK: No jugular venous distention. LUNGS: Clear to auscultation. HEART: Regular rate and rhythm. Normal S1, S2. No murmurs. ABDOMEN: Nondistended. EXTREMITIES: Show no edema. VASCULAR: Right pulse is 2+ and her left pulse is not palpable. LABORATORY RESULTS: Sodium 137, potassium 4.8, chloride 114, BUN 9, creatinine 0.85, bicarb was 19. White blood cell count is 6.9, hemoglobin 8.2, hematocrit 28.3, and platelets 536. Her EKG revealed sinus tachycardia with left atrial enlargement. coding support specialist revealed second-degree Mobitz type 1 heart block. IMPRESSION: 1. Syncope. 2. Second-degree heart block. 3. Takayasu's arteritis. This patient presented with a syncopal episode. We will ask EP to evaluate. We will follow this patient with you through her hospitalization. Job ID: [id number] MTDD
--- NOTE | 2019-07-09 23:53 | CON ---
DATE OF CONSULTATION: 07/09/2019 HISTORY OF PRESENT ILLNESS: I am seeing Ms. Luo at our [facility] as an Electrophysiology lending consultant. Her problems are: 1. Syncopal spell, recurrent, unexplained. 2. Episodic Mobitz type 1 and Mobitz type 2 second-degree AV block. 3. History of Takayasu arteritis complicated with left common carotid artery occlusion and right carotid artery occlusion, on medical management. 4. Normal LVEF of 55% to 60%, mild TR, on echo 07/09/2019. ALLERGIES: NONE NOTED. MEDICATIONS: At home included: 1. Aspirin. 2. Topiramate. 3. Cilostazol. 4. Atorvastatin. 5. Rivaroxaban. SUBJECTIVE: Ms. Luo is here with a syncopal spell. She states she got up going to the bathroom and then suddenly she passed out. She has been down a couple of seconds. Her sister was with her and noted her quickly recovering. Soon after that, she was able to get up. No postictal sensation was noted. She does have episodes of booziness and dizziness. She is more provoked by moving her head back. She has history of arterial occlusion of the carotid arteries and also mid right subclavian artery and narrowing of the left subclavian artery as well and bilateral common carotid artery occlusion. This likely is part of her Takayasu syndrome. She has been treated with steroids, aspirin, and Xarelto chronically. She is clinically stable apart from this episode. She does have a history of stroke in 2015, history of hyperlipidemia, history of seizure disorder, also carries a history of right upper extremity DVT as well. PAST SURGICAL HISTORY: Angiogram, cholecystectomy, orthopedic surgery, and spine surgery in 2018. SOCIAL HISTORY: The patient lives alone. Denies EtOH or drug use. No tobacco abuse either. OBJECTIVE DATA: VITAL SIGNS: Blood pressure is 107/67, heart rate 92, respirations 13, temperature 98.4 degrees Fahrenheit. GENERAL: Alert and oriented woman, in no apparent distress. NECK: Supple. Jugular veins not distended. Carotid bruits are heard bilaterally. CHEST: Coarse without crackles. HEART: Sounds are regular to rate and rhythm. No murmur or gallop. ABDOMEN: Benign. Bowel sounds positive. EXTREMITIES: Lower extremities without edema, clubbing, or cyanosis. Pulses are adequate. NEUROLOGIC: The patient is nonfocal. MUSCULOSKELETAL: Without joint swelling or deformity. SKIN: Without rash. DATABASE: EKG is reviewed revealing initially sinus tachycardia at 101 beats per minute. No signs of ST-T changes. Telemetry strips do reveal episodic AV block , which appears to be on occasion Mobitz type 1 second-degree AV block with CO slightly shorter after the block than before but on some other episodes, this is not entirely clear. Cannot rule out Mobitz type 2 second-degree AV block either. QRS is narrow. 2D echo as above. Normal LVEF. LABORATORY DATA: White count is 6.9, hemoglobin 8.7, platelet count is 536. INR 1.1. Sodium 137, potassium 4.8, BUN is 9, and creatinine is 0.85. Troponin levels 0.01 and 0.025. ASSESSMENT AND PLAN: Ms. Luo is a 33-year-old woman with history of Takayasu arteritis likely related to subclavian and carotid artery occlusions as detailed above. She presented with syncopal spell and also on telemetry noted to have an episodic second-degree AV block. The exact mechanism of the syncopal spell is unclear. The differential diagnosis could include vasovagal type syncope, bradycardia - in view of the observed AV block higher grade longer, possibility of complete AV block cannot be ruled out either. It is somewhat difficult to assess the type of AV block present. Also subclavian steal syndrome could be contributing to her syncopal spell as well. With a wide variety of potential differential diagnosis on further testing might be reasonable for the benefit of EP study, assessing her infrahisian conduction and also potential carotid artery massage. Prior to that, assessing her arterial Dopplers could be considered. Risks and benefits of procedure were discussed including stroke, bradycardia, dizziness, also should there be marked bradycardia found, consideration for pacemaker implant could be made. This was discussed with her. Job ID: [id number] [facility]
--- NOTE | 2019-07-10 08:19 | ULT ---
BILATERAL CAROTID DUPLEX ULTRASOUND: HISTORY: Carotid artery stenosis TECHNIQUE: Grayscale, color-flow and spectral Doppler ultrasound imaging of the extracranial carotid artery syst ems was performed bilaterally. FINDINGS: There is occlusion of the common carotid arteries with retrograde flow in the external carotid arteri es on either side. There is appropriate directional flow in both internal carotid arteries. The peak systolic velocity in the right ICA measures 51 cm/s with an end-diastolic velocity of 15 cm/ s The peak systolic velocity in the left ICA measures 76 cm/s with an end-diastolic velocity of 41 cm/s Flow in both vertebral arteries remains antegrade. IMPRESSION: Bilateral common carotid artery occlusion with reversal of flow in the bilateral external carotid arteries likely supplying the internal carotid arteries which demonstrate no evidence of hemodynamically significant stenosis.
[2019-07-10] MEDS: Famotidine 20 MG TAB PO SCH ×2 (08:42→20:36)
[2019-07-10] MEDS: Ferrex 150 Plus (iron poly cmplx) PO SCH (10:10)
--- NOTE | 2019-07-10 12:31 | PDOC.HOSPP ---
- Subjective Encounter Date: 07/10/19 Encounter Time: 12:30 Subjective: Ms. Luo was seen today in follow-up of syncope in the setting of Takayatsu arteritis. She does not have any new complaints. - Objective Vital Signs & Weight: Vital Signs (12 hours) Temp Pulse Resp BP BP BP BP 07/10/19 11:26 98.5 F 81 16 108/67 07/10/19 08:19 98.0 F 86 16 104/68 109/74 07/10/19 04:25 88 18 105/64 BP Pulse Ox 07/10/19 11:26 100 07/10/19 08:19 106/57 L 100 07/10/19 04:25 100 Weight Weight 190 lb I&O: 07/09/19 07/10/19 07/11/19 06:59 06:59 06:59 Intake Total 800 Balance 800 Result Diagrams: 07/09/19 04:44 07/09/19 04:44 Hospitalist ROS - Medication Medications: Active Medications Generic Name Dose Route Start Last Admin Trade Name Cheng PRN Reason Stop Dose Admin Acetaminophen 650 mg 07/09/19 00:33 07/09/19 19:40 Tylenol PO 650 mg Q4H PRN Administration Headache/Fever/Mild Pain (1-3) Famotidine 20 mg 07/10/19 09:00 07/10/19 08:42 Pepcid PO 20 mg Q12HR MORGAN Administration Miscellaneous Medication 1 cap 07/10/19 09:00 07/10/19 10:10 Ferrex 150 Plus Capsule PO 1 cap DAILY MORGAN Administration Prednisone 60 mg 07/09/19 21:00 07/09/19 19:40 Prednisone PO 60 mg 2100 MORGAN Administration - Exam Eye: PERRL, anicteric sclera Heart: RRR, no murmur, no gallops, no rubs, normal peripheral pulses Respiratory: CTAB, no wheezes, no rales, no ronchi, normal chest expansion, no tachypnea, normal percussion Gastrointestinal: soft, non-tender, non-distended, normal bowel sounds, no palpable masses, no hepatomegaly, no splenomegaly Extremities: no cyanosis, no clubbing, no edema Hosp A/P (1) Syncope Code(s): R55 - SYNCOPE AND COLLAPSE Status: Acute (2) Takayasu's arteritis Code(s): M31.4 - AORTIC ARCH SYNDROME [TAKAYASU] Status: Chronic - Plan * Syncope- Patient is going for Linq recorder or pace-maker placement * CTA of the chest was noted- no evidence of PE * Await Rheumatology evaluation
[2019-07-10] MEDS ORDERED: Lidocaine 1% w/Epinephrine 1:100K 20 ML VIAL ONE (12:39)
[2019-07-10] MEDS ORDERED: Heparin (Artline) 500 ML ONE (12:39)
[2019-07-10] MEDS ORDERED: Lidocaine 1% (PF) 30 ML VIAL ONE (12:39)
[2019-07-10] MEDS ORDERED: Propofol 1,000 MG/100 ML VIAL IV ONE (12:40)
[2019-07-10] MEDS ORDERED: Midazolam HCl 2 mg/2 ml Vial ONE (13:09)
[2019-07-10] MEDS ORDERED: Ondansetron HCl/PF 4 MG/2 ML Vial IVP PRN (14:41)
[2019-07-10] MEDS: Acetaminophen 325 MG TAB PO PRN ×2 (16:14→23:10)
--- NOTE | 2019-07-10 16:19 | OP ---
DATE OF PROCEDURE: 07/10/2019 PROCEDURE PERFORMED: Electrophysiology study. REASON FOR STUDY: Ms. Luo is a pleasant 33-year-old female with prior history of Takayasu syndrome with proximal arteritis related occlusion of the common carotid arteries in the left subclavian, who presented with a syncopal spell. She has recurrent. She has second-degree AV block noted, causing less than 2 seconds of pauses, some Mobitz type 1, but some features of Mobitz type 2 AV block. She is here to evaluate for infrahisian conduction, inducible arrhythmias, or sinus node disease or carotid sinus hypersensitivity as a potential cause for her syncopal spell. DESCRIPTION OF PROCEDURE: The patient received sedation by anesthesia specialist. The right femoral venous area was prepped, draped, and anesthetized using subcutaneous lidocaine, and under ultrasound guidance, right femoral vein was cannulated x2. Two 6-Dutch short sheaths were introduced, through which a decapolar and quadripolar catheters were advanced to the right atrium, right ventricle, His bundle, and CS position. Pacing mapping and recording were performed including pacing the left atrium via the CS. Following findings were noted. Baseline rhythm was sinus rhythm with sinus cycle length of 590 milliseconds, MO 183 milliseconds, QRS 84 milliseconds, QT 311 milliseconds, HV 39 milliseconds seen. Sinus node recovery time was 909 milliseconds, corrected 320 milliseconds. The AV Wenckebach cycle length was 380 milliseconds. Retrograde Wenckebach cycle length was 510 milliseconds noted. AV tony ERP was 500/310 milliseconds. Concentric retrograde VA conduction was seen. No dual AV tony physiology was observed. Burst atrial pacing and the Wenckebach cycle length then gradually decremented to 200 milliseconds, did not reinduce atrial arrhythmias. Ventricular extrastimuli testing was performed and the ventricle ERP was noted to be 500/220 milliseconds. No ventricular arrhythmias induced with this method either. At this point, carotid sinus massage delivered about a minute on each side, but no significant slowing or AV block has developed as the result of the sinus massage. The patient remained stable throughout the procedure. Cardiac silhouette did not change. Catheters and sheaths were removed in the manager cardiac cath. Manual pressure was used to used to obtain hemostasis. CONCLUSION: 1. Negative electrophysiology study for sinus or atrioventricular otny disease. No evidence of accessory pathway or dual atrioventricular tony physiology. No inducible atrial or ventricular arrhythmias. 2. Negative for carotid sinus massage. PLAN: At this point, we will place the LINQ recorder for monitoring of recurrent arrhythmias. Rule out subclinical arrhythmia or AV block and consider evaluation for carotid steal syndrome. Job ID: [id number]
--- NOTE | 2019-07-10 16:19 | OP ---
DATE OF PROCEDURE: 07/10/2019 PROCEDURE PERFORMED: LINQ recorder implant. REASON FOR PROCEDURE: Ms. Luo is a 33-year-old woman with history of recurrent syncopal spell, who has a history of Takayasu arteritis. The EP study prior to procedure demonstrates no evidence of sinus AV tony His-Purkinje disease or inducible arrhythmias. She on the other hand had a Mobitz type 1 and 2 second-degree AV blocks. Here for a LINQ recorder implant for further monitoring. DESCRIPTION OF PROCEDURE: The left precordial area was prepped and draped, anesthetized using subcutaneous lidocaine. In the 4th intercostal space, an incision was made with a standard [employer] tool kit. The LINQ recorder was inserted. Wound was closed with Steri-Strips. The serial number is [id number]. The model number is LINQ11. CONCLUSION: Successful LINQ recorder implant for further monitoring. Job ID: [id number]
[2019-07-10] MEDS: predniSONE 20 MG TAB PO SCH (20:36)
[2019-07-11] MEDS: Acetaminophen 325 MG TAB PO PRN ×2 (04:08→08:46)
[2019-07-11 08:28] VITALS: BP 111/62; TEMP 97.4
[2019-07-11] MEDS ORDERED: Polyethylene Glycol 3350 17 GM Packet PO PRN (08:43)
[2019-07-11] MEDS: Ferrex 150 Plus (iron poly cmplx) PO SCH (08:45)
[2019-07-11] MEDS: Famotidine 20 MG TAB PO SCH (08:45)
--- NOTE | 2019-07-11 08:52 | PDOC.HOSPP ---
- Subjective Encounter Date: 07/11/19 Encounter Time: 08:49 Subjective: Ms. Luo was seen today in follow-up of syncope in the setting of Takayasu Arteritis. She does not have any new complaints today. - Objective Vital Signs & Weight: Vital Signs (12 hours) Temp Pulse Resp BP BP BP BP 07/11/19 08:13 97.4 F L 80 16 115/70 114/72 111/62 07/11/19 04:05 98.0 F 90 16 104/59 L 07/11/19 00:18 98/58 L Pulse Ox 07/11/19 08:13 98 07/11/19 04:05 97 07/11/19 00:18 Weight Weight 190 lb I&O: 07/10/19 07/11/19 07/12/19 06:59 06:59 06:59 Intake Total 800 300 Balance 800 300 Result Diagrams: 07/09/19 04:44 07/09/19 04:44 Hospitalist ROS - Medication Medications: Active Medications Generic Name Dose Route Start Last Admin Trade Name Cheng PRN Reason Stop Dose Admin Acetaminophen 650 mg 07/09/19 00:33 07/11/19 08:46 Tylenol PO 650 mg Q4H PRN Administration Headache/Fever/Mild Pain (1-3) Famotidine 20 mg 07/10/19 09:00 07/11/19 08:45 Pepcid PO 20 mg Q12HR MORGAN Administration Miscellaneous Medication 1 cap 07/10/19 09:00 07/11/19 08:45 Ferrex 150 Plus Capsule PO 1 cap DAILY MORGAN Administration Prednisone 60 mg 07/09/19 21:00 07/10/19 20:36 Prednisone PO 60 mg 2100 MORGAN Administration - Exam Eye: PERRL, anicteric sclera Heart: RRR, no murmur, no gallops, no rubs, normal peripheral pulses Respiratory: CTAB, no wheezes, no rales, no ronchi, normal chest expansion, no tachypnea, normal percussion Gastrointestinal: soft, non-tender, non-distended, normal bowel sounds, no palpable masses, no hepatomegaly, no splenomegaly Extremities: no cyanosis, no clubbing, no edema Hosp A/P (1) Syncope Code(s): R55 - SYNCOPE AND COLLAPSE Status: Acute (2) Takayasu's arteritis Code(s): M31.4 - AORTIC ARCH SYNDROME [TAKAYASU] Status: Chronic - Plan * Syncope - most likely due to carotid artery occlusion. * LINQ recorder has been placed * CTA of the chest was noted- no evidence of PE * She is stable for discharge
[2019-07-11] MEDS ORDERED: Aspirin 81 mg Enteric Coated Tablet PO SCH (09:00)
--- NOTE | 2019-07-11 10:06 | DIS ---
DATE OF ADMISSION: 07/08/2019 DATE OF DISCHARGE: 07/11/2019 DISCHARGE DISPOSITION: Home. DISCHARGE DIAGNOSES: 1. Syncope. 2. Takayasu's arteritis. 3. Bilateral internal carotid occlusion. 4. History of previous cerebrovascular accident. 5. Hyperlipidemia. 6. History of seizures. DISCHARGE MEDICATIONS: Include; 1. Prednisone 60 mg daily. 2. Topiramate 50 mg q.a.c. 3. Xarelto 20 mg at bedtime. 4. Cilostazol 100 mg twice daily. 5. Atorvastatin 20 mg at bedtime. 6. Aspirin 81 mg a day. 7. Iron Complex vitamin. IMAGING DONE DURING THE HOSPITAL STAY: The patient had a CT angiogram of the chest showing no evidence of pulmonary embolism. The patient had a CT scan of the brain, which was normal. The patient had an echocardiogram, in which the ejection fraction was estimated at 55% to 60%. There was normal left ventricular size and normal left atrial size. The patient had bilateral carotid Dopplers, in which there was evidence of common carotid artery occlusion with reversal of flow into the bilateral external carotids likely supplying the internal carotid arteries. The patient had an electrophysiological study and placement of a LINQ recorder. CODE STATUS: Full code. ALLERGIES: NO KNOWN DRUG ALLERGIES. HOSPITAL COURSE: Ms. Luo is a pleasant 33-year-old female, who was admitted to the hospital after she had a syncopal episode. The full details of which are outlined in the history and physical by Guillermina Rowley. She was admitted to the hospital with a known history of . Cardiology was consulted after it was found that she had some evidence of first and second-degree AV block and an episode of a fairly short pause. She underwent echocardiogram, which was essentially negative as well as an EP study and a LINQ recorder was placed to see whether or not she would actually require pacemaker. CT angiogram of the chest was done and ruled out PE. She was also seen by Dr. Rene, her instructor adjunct pharmacy technician, during her hospital stay. She was placed on iron for her microcytic anemia, which was found to be iron deficiency. Continue the prednisone, and the plan was to see her in the outpatient setting in a couple of days with the intent of starting her on Humira. Job ID: [id number]
[2019-07-11] MEDS ORDERED: Topiramate 25 MG TAB PO SCH (11:30)
[2019-07-11] MEDS ORDERED: Cilostazol 100 MG TAB PO SCH (16:30)
[2019-07-11] MEDS ORDERED: Rivaroxaban 10 MG TAB PO SCH (21:00)
[2019-07-11] MEDS ORDERED: Atorvastatin Calcium 20 MG TAB PO SCH (21:00)
--- NOTE | 2019-07-13 12:34 | EKG ---
Test Reason : Blood Pressure : / mmHG Vent. Rate : 101 BPM Atrial Rate : 101 BPM P-R Int : 166 ms QRS Dur : 082 ms QT Int : 322 ms P-R-T Axes : 055 046 044 degrees QTc Int : 417 ms Sinus tachycardia Possible Left atrial enlargement Borderline ECG Confirmed by NICHOLAS COLON M.D. ([id number]), production editor MERVIN LOCO ([id number] on 07/13/2019 12:34:13 PM Referred By: Confirmed By:NICHOLAS COLON M.D.
== END 2019-07-11 11:17 | disposition home or self-care (01) | DRG 41 ==
LOC: ERS 16:29 → ERHOLD 21:03 → OBSVTOIN 21:03 → 2SW 07-09 07:20
PROVIDERS: ADMIT Internal Medicine; ATTEND Internal Medicine
PROC: 0JH602Z Insertion of Monitoring Device into Chest Subcutaneous Tissue and Fascia, Open Approach (ICD-10-PCS; principal; 2019-07-10)
PROC: 4A023FZ Measurement of Cardiac Rhythm, Percutaneous Approach (ICD-10-PCS; 2019-07-10)
PROC: 4A0234Z Measurement of Cardiac Electrical Activity, Percutaneous Approach (ICD-10-PCS; 2019-07-10)
DX: I65.23 Occlusion and stenosis of bilateral carotid arteries (principal); M31.4 Aortic arch syndrome [Takayasu]; E78.5 Hyperlipidemia, unspecified; D50.9 Iron deficiency anemia, unspecified; G40.909 Epilepsy, unspecified, not intractable, without status epilepticus; I44.1 Atrioventricular block, second degree; Z86.73 Personal history of transient ischemic attack (TIA), and cerebral infarction without residual deficits; Z79.01 Long term (current) use of anticoagulants; Z90.49 Acquired absence of other specified parts of digestive tract
CPT/HCPCS: 33285; 36415; 70450; 71275; 72170; 80048; 80053; 81003; 82607; 82728; 82746; 83540; 83550; 84466; 84484; 84703; 85025; 85610; 86850; 86900; 86901; 93005; 93306; 93620; 93880; 94760; 96360; 96361; C1730; C1764; C1769; J0690; J1644; J2001; J2250; J2704; J3490; J7512; Q9967; S0028

== ENCOUNTER 2019-07-17 15:39 | Emergency (ER) | payer SELFPAY ==
[2019-07-17] MEDS ORDERED: Metoclopramide HCl 10 MG/2 ML VIAL ONE (16:27)
[2019-07-17 16:33] LABS: Bilirubin Negative (Negative); Blood, Urine Negative (Negative); Clarity Clear (Clear); Glucose, Urine (Dipstick) Normal (Negative); Leukocyte Negative Leu/uL (Negative); Nitrite Negative (Negative); Protein, Urine (Dipstick) Negative (Neg-Trace); Urobilinogen Normal mg/dL (Less than 2)
--- NOTE | 2019-07-17 16:34 | CT ---
CT HEAD WITHOUT IV CONTRAST COMPARISON: 07/08/2019 HISTORY: Right arm tingling and numbness with associated headache and dizzy spell. TECHNIQUE: Axial CT imaging at 5 mm intervals from vertex through skull base without contrast FINDINGS: There is no evidence of an acute infarction, hemorrhage, mass effect, or midline shift. The ventricul ar system is normal in size, shape, and position. Mucosal thickening is present in the left sphenoid sinus. This is stable compared to prior exam. The mastoid air cells are clear. Osseous structures appear intact. IMPRESSION: 1. No acute intracranial abnormality demonstrated.
[2019-07-17 16:52] LABS: #Lymphocytes 0.5 thou/uL (1.20-3.40); #Monocytes 0.2 thou/uL (0.11-0.59); #Neutrophils 11.8 thou/uL (1.40-6.50); %Basophils 0.1 % (0.0-1.0); %Eosinophils 0.2 % (0.0-10.0); %Lymphocytes 4.3 % (21.0-51.0); %Monocytes 1.5 % (0.0-10.0); %Neutrophils 93.9 % (42.0-75.0); Hemoglobin 8.8 g/dL (12.0-16.0); Mean Corpuscular HGB CONC 30.1 g/dL (32.0-36.0); Mean Corpuscular Hemoglobin 21.4 pg (27.0-31.0); Mean Corpuscular Volume 71.3 fL (78.0-98.0); Mean Platelet Volume 8.7 fL (7.4-10.4); Platelet Count 460 thou/uL (130-400); RBC Distribution Width 18.3 % (11.5-14.5); Red Blood Cell (RBC) Count 4.11 mill/uL (4.20-5.40); White Blood Cell (WBC) Count 12.5 thou/uL (4.8-10.8)
--- NOTE | 2019-07-17 16:52 | RAD ---
EXAM: CHEST ONE VIEW: 07/17/19 HISTORY: Dizziness. COMPARISON: 12/23/18. FINDINGS: The heart size is normal. The lungs are clear. No confluent pneumonia, overt edema, or pleural effusi on. IMPRESSION: No acute intrathoracic disease. POS: OFF
[2019-07-17 16:54] LABS: BHCG - Serum Negative (NEGATIVE); Pregs Control Background? CLEAR/WHITE (CLR/WHITE); Pregs Control Bar Appear? YES (CONTROL BAR)
[2019-07-17 17:17] LABS: ALT (SGPT) 16 U/L (8-55); AST (SGOT) 16 U/L (5-34); Albumin 4.3 g/dL (3.5-5.0); Alkaline Phosphatase 52 U/L (40-110); Anion Gap 14 mmol/L (10-20); BUN (Urea Nitrogen) 14 mg/dL (7.0-18.7); Bilirubin, Total 0.3 mg/dL (0.2-1.2); Calc. Creatinine Clearance 0 mL/min (70-130); Calcium 8.9 mg/dL (7.8-10.44); Carbon Dioxide 19 mmol/L (22-29); Chloride 110 mmol/L (98-107); Estimated GFR-MDRD 63; Globulin 3.4 g/dL (2.4-3.5); Glucose 136 mg/dL (70-105); Magnesium 1.9 mg/dL (1.6-2.6); Potassium 3.8 mmol/L (3.5-5.1); Protein, Total 7.7 g/dL (6.0-8.3); Sodium 139 mmol/L (136-145)
[2019-07-17 17:22] LABS: Thyroid Stimulating Hormone 0.3611 uIU/mL (0.35-4.94)
== END 2019-07-17 18:28 | disposition home or self-care (01) ==
LOC: ERS 15:39
DX: R42 Dizziness and giddiness (principal); E78.5 Hyperlipidemia, unspecified; Z79.01 Long term (current) use of anticoagulants; Z79.899 Other long term (current) drug therapy; Z79.82 Long term (current) use of aspirin
CPT/HCPCS: 70450; 71045; 80053; 81003; 83735; 84443; 84484; 84703; 85025; 93005; 94760; 96365; J2765

== ENCOUNTER 2019-12-05 16:38 | Emergency (ER) | payer MEDICARE, OTHER ==
[2019-12-05 17:32] LABS: #Lymphocytes 1.1 thou/uL (1.20-3.40); #Monocytes 0.7 thou/uL (0.11-0.59); %Basophils 0.2 % (0.0-1.0); %Eosinophils 0.2 % (0.0-10.0); %Lymphocytes 9.6 % (21.0-51.0); %Monocytes 6.1 % (0.0-10.0); %Neutrophils 83.9 % (42.0-75.0); Hemoglobin 10.7 g/dL (12.0-16.0); Mean Corpuscular HGB CONC 31.9 g/dL (32.0-36.0); Mean Corpuscular Hemoglobin 26.3 pg (27.0-31.0); Mean Corpuscular Volume 82.4 fL (78.0-98.0); Mean Platelet Volume 7.3 fL (7.4-10.4); Platelet Count 400 thou/uL (130-400); Red Blood Cell (RBC) Count 4.08 mill/uL (4.20-5.40); White Blood Cell (WBC) Count 11.9 thou/uL (4.8-10.8)
[2019-12-05 17:33] LABS: BHCG - Serum Negative (NEGATIVE); Pregs Control Background? CLEAR/WHITE (CLR/WHITE); Pregs Control Bar Appear? YES (CONTROL BAR)
[2019-12-05 17:46] LABS: ALT (SGPT) 12 U/L (8-55); AST (SGOT) 19 U/L (5-34); Alkaline Phosphatase 50 U/L (40-110); Anion Gap 10 mmol/L (10-20); BUN (Urea Nitrogen) 12 mg/dL (7.0-18.7); Bilirubin, Total 0.4 mg/dL (0.2-1.2); Calc. Creatinine Clearance 0 mL/min (70-130); Calcium 8.5 mg/dL (7.8-10.44); Carbon Dioxide 23 mmol/L (22-29); Chloride 109 mmol/L (98-107); Estimated GFR-MDRD 90; Globulin 3.3 g/dL (2.4-3.5); Glucose 83 mg/dL (70-105); Potassium 3.6 mmol/L (3.5-5.1); Protein, Total 7.3 g/dL (6.0-8.3); Sodium 138 mmol/L (136-145)
[2019-12-05] MEDS ORDERED: Ondansetron PF 4 MG/2 ML Vial ONE (19:03)
[2019-12-05] MEDS ORDERED: Morphine 4 MG/ML VIAL ONE (19:03)
[2019-12-05 19:33] LABS: Bacteria/HPF None Seen HPF (None Seen); Bilirubin Negative (Negative); Blood, Urine Trace (Negative); Clarity Clear (Clear); Glucose, Urine (Dipstick) Normal (Negative); Leukocyte Negative Leu/uL (Negative); Nitrite Negative (Negative); Protein, Urine (Dipstick) 10 mg/dL (Neg-Trace); RBC/HPF 0-3 HPF (0-3); Squamous Epithelial 0-3 HPF (0-3); Urobilinogen Normal mg/dL (Less than 2); WBC/HPF 0-3 HPF (0-3)
--- NOTE | 2019-12-05 22:41 | CT ---
CT ABDOMEN AND PELVIS WITH IV CONTRAST: 12/05/19 HISTORY: Right lower quadrant abdominal pain. FINDINGS: The lung bases are clear. The patient is post cholecystectomy with mild prominence of the intrahepati c biliary ducts. The common duct measures 8 mm in the head of the pancreas. The spleen, pancreas, and adrenal glands are normal. There is a tiny cyst in the left lobe of the liver. A tiny cyst is seen i n the left kidney. No free air, free fluid or lymphadenopathy is seen in the abdomen or pelvis. The small bowel loops ar e not abnormally dilated. A normal appearing appendix is present. The uterus and ovaries are visualiz ed. There is suggestion of a uterine fibroid. There are mild degenerative changes of the spine. There is no evidence of aneurysmal dilatation of the abdominal aorta. A small hiatal hernia is present. IMPRESSION: No acute process. POS: [facility]
[2019-12-06 12:55] LABS: SARS-CoV-2 MS2 Positive; SARS-CoV-2 N Gene Negative; SARS-CoV-2 S Gene Negative; SARS-CoV-2 orf1ab Negative
== END 2019-12-05 21:32 | disposition home or self-care (01) ==
LOC: ERS 16:38
DX: R10.31 Right lower quadrant pain (principal); Z20.828 Contact with and (suspected) exposure to other viral communicable diseases; R68.83 Chills (without fever); R11.2 Nausea with vomiting, unspecified; E78.5 Hyperlipidemia, unspecified; Z79.82 Long term (current) use of aspirin; Z79.01 Long term (current) use of anticoagulants; Z79.899 Other long term (current) drug therapy
CPT/HCPCS: 74177; 80053; 83605; 84703; 85025; 85652; 96361; 96374; 96375; 99284; U0003; 36415; 81003; 81015; 87635; J2270; J2405; Q9967

== ENCOUNTER 2019-12-15 09:19 | Emergency (ER) | payer MEDICARE, OTHER ==
--- NOTE | 2019-12-15 10:03 | RAD ---
EXAM: Single view of the chest HISTORY: Chest pain and shortness of breath COMPARISON: 07/17/2019 FINDINGS: Single view of the chest shows a normal sized cardiomediastinal silhouette. There is no debby dence of consolidation, mass, or pleural effusion. The bones are unremarkable. IMPRESSION: No evidence of acute cardiopulmonary disease
[2019-12-15 10:35] LABS: #Lymphocytes 0.9 thou/uL (1.20-3.40); #Monocytes 0.3 thou/uL (0.11-0.59); #Neutrophils 1.6 thou/uL (1.40-6.50); %Basophils 0.9 % (0.0-1.0); %Eosinophils 0.8 % (0.0-10.0); %Lymphocytes 31.1 % (21.0-51.0); %Monocytes 9.9 % (0.0-10.0); %Neutrophils 57.3 % (42.0-75.0); Hemoglobin 10.5 g/dL (12.0-16.0); Mean Corpuscular HGB CONC 31.8 g/dL (32.0-36.0); Mean Corpuscular Hemoglobin 25.8 pg (27.0-31.0); Mean Platelet Volume 8.2 fL (7.4-10.4); Platelet Count 330 thou/uL (130-400); RBC Distribution Width 15.7 % (11.5-14.5); Red Blood Cell (RBC) Count 4.08 mill/uL (4.20-5.40); White Blood Cell (WBC) Count 2.8 thou/uL (4.8-10.8)
[2019-12-15 10:54] LABS: ALT (SGPT) 18 U/L (8-55); AST (SGOT) 23 U/L (5-34); Albumin 3.8 g/dL (3.5-5.0); Alkaline Phosphatase 48 U/L (40-110); Anion Gap 11 mmol/L (10-20); BUN (Urea Nitrogen) 8 mg/dL (7.0-18.7); Bilirubin, Total 0.2 mg/dL (0.2-1.2); Calc. Creatinine Clearance 0 mL/min (70-130); Calcium 8.5 mg/dL (7.8-10.44); Carbon Dioxide 21 mmol/L (22-29); Chloride 111 mmol/L (98-107); Estimated GFR-MDRD 76; Globulin 3.3 g/dL (2.4-3.5); Glucose 86 mg/dL (70-105); Potassium 3.8 mmol/L (3.5-5.1); Protein, Total 7.1 g/dL (6.0-8.3); Sodium 139 mmol/L (136-145)
[2019-12-16 14:00] LABS: SARS-CoV-2 MS2 Positive; SARS-CoV-2 N Gene Positive; SARS-CoV-2 orf1ab Positive
== END 2019-12-15 11:35 | disposition home or self-care (01) ==
LOC: ERS 09:19
DX: U07.1 COVID-19 (principal); R50.9 Fever, unspecified; R06.00 Dyspnea, unspecified; R52 Pain, unspecified; R43.8 Other disturbances of smell and taste; E78.5 Hyperlipidemia, unspecified; Z86.73 Personal history of transient ischemic attack (TIA), and cerebral infarction without residual deficits; Z79.899 Other long term (current) drug therapy; Z79.01 Long term (current) use of anticoagulants; Z79.82 Long term (current) use of aspirin
CPT/HCPCS: 71045; 80053; 83605; 85025; 96360; 96361; 99285; U0003; 87635

== ENCOUNTER 2020-01-28 19:04 | Emergency (ER) | payer MEDICAID, MEDICARE, OTHER ==
[2020-01-28] MEDS ORDERED: predniSONE 20 MG TAB ONE (19:40)
[2020-01-28 19:52] LABS: #Eosinphils 0.1 thou/uL (0.0-0.7); #Lymphocytes 1.7 thou/uL (1.20-3.40); #Monocytes 0.5 thou/uL (0.11-0.59); #Neutrophils 3.8 thou/uL (1.40-6.50); %Basophils 0.8 % (0.0-1.0); %Eosinophils 1.6 % (0.0-10.0); %Lymphocytes 27.2 % (21.0-51.0); %Monocytes 8.8 % (0.0-10.0); %Neutrophils 61.6 % (42.0-75.0); Mean Corpuscular HGB CONC 31.5 g/dL (32.0-36.0); Mean Corpuscular Hemoglobin 26.5 pg (27.0-31.0); Mean Corpuscular Volume 83.9 fL (78.0-98.0); Mean Platelet Volume 7.1 fL (7.4-10.4); Platelet Count 493 thou/uL (130-400); Red Blood Cell (RBC) Count 3.77 mill/uL (4.20-5.40); White Blood Cell (WBC) Count 6.2 thou/uL (4.8-10.8)
[2020-01-28 20:14] LABS: ALT (SGPT) 9 U/L (8-55); AST (SGOT) 17 U/L (5-34); Albumin 3.8 g/dL (3.5-5.0); Alkaline Phosphatase 57 U/L (40-110); Anion Gap 10 mmol/L (10-20); BUN (Urea Nitrogen) 9 mg/dL (7.0-18.7); Bilirubin, Total 0.3 mg/dL (0.2-1.2); CK (CPK) 91 U/L (29-168); Calc. Creatinine Clearance 0 mL/min (70-130); Calcium 8.5 mg/dL (7.8-10.44); Carbon Dioxide 22 mmol/L (22-29); Chloride 112 mmol/L (98-107); Estimated GFR-MDRD 59; Globulin 3.4 g/dL (2.4-3.5); Glucose 95 mg/dL (70-105); Potassium 3.5 mmol/L (3.5-5.1); Protein, Total 7.2 g/dL (6.0-8.3); Sodium 140 mmol/L (136-145)
== END 2020-01-28 20:52 | disposition home or self-care (01) ==
LOC: ERS 19:04
DX: M31.4 Aortic arch syndrome [Takayasu] (principal); R07.89 Other chest pain; Z79.01 Long term (current) use of anticoagulants; E78.5 Hyperlipidemia, unspecified; Z79.899 Other long term (current) drug therapy; Z79.82 Long term (current) use of aspirin
CPT/HCPCS: 36415; 80053; 82550; 84484; 85025; 85379; 85652; 86140; 93005; J7512

== ENCOUNTER 2020-05-05 05:33 | Emergency (ER) | payer MEDICARE, MEDICAID ==
[2020-05-05 06:13] LABS: #Basophils 0.1 thou/uL (0.0-0.2); #Eosinphils 0.1 thou/uL (0.0-0.7); #Lymphocytes 2.2 thou/uL (1.20-3.40); #Monocytes 0.7 thou/uL (0.11-0.59); #Neutrophils 3.3 thou/uL (1.40-6.50); %Basophils 1.2 % (0.0-1.0); %Eosinophils 1.7 % (0.0-10.0); %Lymphocytes 34.8 % (21.0-51.0); %Monocytes 10.3 % (0.0-10.0); Hemoglobin 9.8 g/dL (12.0-16.0); Mean Corpuscular HGB CONC 32.9 g/dL (32.0-36.0); Mean Corpuscular Hemoglobin 28.9 pg (27.0-31.0); Mean Corpuscular Volume 87.9 fL (78.0-98.0); Mean Platelet Volume 6.6 fL (7.4-10.4); Platelet Count 402 thou/uL (130-400); RBC Distribution Width 14.1 % (11.5-14.5); White Blood Cell (WBC) Count 6.3 thou/uL (4.8-10.8)
[2020-05-05 06:23] LABS: BHCG - Serum Negative (NEGATIVE); Pregs Control Background? CLEAR/WHITE (CLR/WHITE); Pregs Control Bar Appear? YES (CONTROL BAR)
[2020-05-05 06:39] LABS: ALT (SGPT) 10 U/L (8-55); AST (SGOT) 19 U/L (5-34); Albumin 3.7 g/dL (3.5-5.0); Alkaline Phosphatase 40 U/L (40-110); Anion Gap 12 mmol/L (10-20); BUN (Urea Nitrogen) 12 mg/dL (7.0-18.7); Bilirubin, Total 0.3 mg/dL (0.2-1.2); Calc. Creatinine Clearance 0 mL/min (70-130); Calcium 8.5 mg/dL (7.8-10.44); Carbon Dioxide 22 mmol/L (22-29); Chloride 111 mmol/L (98-107); Estimated GFR-MDRD 81; Globulin 3.1 g/dL (2.4-3.5); Glucose 95 mg/dL (70-105); Potassium 3.7 mmol/L (3.5-5.1); Protein, Total 6.8 g/dL (6.0-8.3); Sodium 141 mmol/L (136-145)
--- NOTE | 2020-05-05 08:12 | RAD ---
RADIOGRAPH CHEST 1 VIEW: DATE: 05/05/2020 HISTORY: 34-year-old female with chest pain FINDINGS: There are no airspace densities, pulmonary edema, pneumothorax, or cardiomegaly. The lateral costophr enic angles are sharp. IMPRESSION: No acute cardiopulmonary findings.
== END 2020-05-05 06:56 | disposition home or self-care (01) ==
LOC: ERS 05:33
DX: M31.4 Aortic arch syndrome [Takayasu] (principal); E78.5 Hyperlipidemia, unspecified; Z79.82 Long term (current) use of aspirin; Z79.899 Other long term (current) drug therapy; Z79.01 Long term (current) use of anticoagulants; Z79.52 Long term (current) use of systemic steroids; Z86.73 Personal history of transient ischemic attack (TIA), and cerebral infarction without residual deficits
CPT/HCPCS: 36415; 71045; 80053; 84703; 85025; 93005

== ENCOUNTER 2020-07-22 14:21 | Emergency (ER) | payer MEDICARE, MEDICAID ==
[2020-07-22 15:15] LABS: #Lymphocytes 1.1 thou/uL (1.20-3.40); #Monocytes 0.3 thou/uL (0.11-0.59); #Neutrophils 6.6 thou/uL (1.40-6.50); %Basophils 0.4 % (0.0-1.0); %Eosinophils 0.5 % (0.0-10.0); %Neutrophils 81.1 % (42.0-75.0); Hemoglobin 12.3 g/dL (12.0-16.0); Mean Corpuscular HGB CONC 33.4 g/dL (32.0-36.0); Mean Corpuscular Hemoglobin 30.9 pg (27.0-31.0); Mean Corpuscular Volume 92.6 fL (78.0-98.0); Mean Platelet Volume 6.8 fL (7.4-10.4); Platelet Count 358 thou/uL (130-400); RBC Distribution Width 14.1 % (11.5-14.5); Red Blood Cell (RBC) Count 3.98 mill/uL (4.20-5.40); White Blood Cell (WBC) Count 8.1 thou/uL (4.8-10.8)
[2020-07-22 15:36] LABS: ALT (SGPT) 18 U/L (8-55); AST (SGOT) 20 U/L (5-34); Albumin 4.3 g/dL (3.5-5.0); Alkaline Phosphatase 59 U/L (40-110); Anion Gap 12 mmol/L (10-20); BUN (Urea Nitrogen) 10 mg/dL (7.0-18.7); Bilirubin, Total 0.3 mg/dL (0.2-1.2); Calc. Creatinine Clearance 0 mL/min (70-130); Carbon Dioxide 24 mmol/L (22-29); Chloride 107 mmol/L (98-107); Globulin 3.1 g/dL (2.4-3.5); Glucose 104 mg/dL (70-105); Potassium 3.7 mmol/L (3.5-5.1); Protein, Total 7.4 g/dL (6.0-8.3); Sodium 139 mmol/L (136-145)
[2020-07-22 17:38] LABS: Bacteria/HPF None Seen HPF (None Seen); Bilirubin Negative (Negative); Blood, Urine 2+ (Negative); Clarity Clear (Clear); Glucose, Urine (Dipstick) Normal (Negative); Ketone, Urine Negative (Negative); Leukocyte Negative Leu/uL (Negative); Nitrite Negative (Negative); Protein, Urine (Dipstick) Negative (Neg-Trace); RBC/HPF Greater than 50 HPF (0-3); Specific Gravity, Urine 1.007 (1.002-1.036); Squamous Epithelial None Seen HPF (0-3); Urobilinogen Normal mg/dL (Less than 2); WBC/HPF 0-3 HPF (0-3)
[2020-07-22 17:40] LABS: Pregnancy Test - Urine (BHCG) Negative (Negative); Pregu Control Background? CLEAR/WHITE (CLR/WHITE); Pregu Control Bar Appear? YES (CONTROL BAR); Specific Gravity 1.007 (1.002-1.036)
== END 2020-07-22 17:32 | disposition home or self-care (01) ==
LOC: ERS 14:21
DX: N93.9 Abnormal uterine and vaginal bleeding, unspecified (principal); E78.5 Hyperlipidemia, unspecified; Z79.899 Other long term (current) drug therapy
CPT/HCPCS: 36415; 80053; 81003; 81015; 81025; 85025; 86850; 86900; 86901; 93005

== ENCOUNTER 2020-08-08 20:03 | Emergency (ER) | payer MEDICARE, MEDICAID ==
[2020-08-08] MEDS ORDERED: Acetaminophen 500 MG TAB ONE (20:44)
[2020-08-08] MEDS ORDERED: diphenhydrAMINE 50 MG/ML VIAL ONE (20:44)
[2020-08-08] MEDS ORDERED: Metoclopramide HCl 10 MG/2 ML VIAL ONE (20:44)
--- NOTE | 2020-08-08 21:09 | CT ---
Exam: Head CT without contrast HISTORY: Headache. Dizziness. COMPARISON: 07/17/2019 FINDINGS: Hemorrhage: No intraparenchymal hemorrhage or extra-axial hematoma. Brain parenchyma: Cortical galeas-white matter differentiation is preserved. No mass effect or midline shift. Basilar cisterns are patent. Ventricular system: Ventricles and sulci are patent and symmetric. Calvarium: Intact. Sinuses and mastoid air cells: Mild mucosal disease of the left sphenoid sinus, similar to the previo us examination. IMPRESSION: No acute intracranial process.
== END 2020-08-08 22:22 | disposition home or self-care (01) ==
LOC: ERS 20:03
DX: R51.9 Headache, unspecified (principal); E78.5 Hyperlipidemia, unspecified; Z79.01 Long term (current) use of anticoagulants; Z79.82 Long term (current) use of aspirin; Z79.899 Other long term (current) drug therapy; Z86.73 Personal history of transient ischemic attack (TIA), and cerebral infarction without residual deficits
CPT/HCPCS: 70450; 96365; 96375; J1200; J2765

== ENCOUNTER 2020-10-09 10:40 | Emergency (ER) | payer MEDICARE, MEDICAID ==
[2020-10-09] MEDS ORDERED: Ondansetron ODT 4 MG TAB ONE (11:39)
[2020-10-09] MEDS ORDERED: HYDROcodone/Acetaminophen 10/325 mg Tablet ONE (11:39)
== END 2020-10-09 11:55 | disposition home or self-care (01) ==
LOC: ERS 10:40
DX: M54.5 Low back pain (principal); E78.5 Hyperlipidemia, unspecified; Z79.82 Long term (current) use of aspirin; Z79.899 Other long term (current) drug therapy
CPT/HCPCS: 72100; Q0162

== ENCOUNTER 2020-10-23 03:44 | Emergency (ER) | payer MEDICARE, MEDICAID ==
[2020-10-23 05:11] LABS: #Basophils 0.1 thou/uL (0.0-0.2); #Eosinphils 0.1 thou/uL (0.0-0.7); #Lymphocytes 2.5 thou/uL (1.20-3.40); #Monocytes 0.7 thou/uL (0.11-0.59); #Neutrophils 4.8 thou/uL (1.40-6.50); %Basophils 1.4 % (0.0-1.0); %Eosinophils 1.4 % (0.0-10.0); %Lymphocytes 30.6 % (21.0-51.0); %Monocytes 8.1 % (0.0-10.0); %Neutrophils 58.5 % (42.0-75.0); Hemoglobin 12.1 g/dL (12.0-16.0); Mean Corpuscular HGB CONC 33.2 g/dL (32.0-36.0); Mean Corpuscular Hemoglobin 31.2 pg (27.0-31.0); Mean Corpuscular Volume 93.9 fL (78.0-98.0); Mean Platelet Volume 6.3 fL (7.4-10.4); Platelet Count 376 thou/uL (130-400); RBC Distribution Width 11.7 % (11.5-14.5); Red Blood Cell (RBC) Count 3.88 mill/uL (4.20-5.40); White Blood Cell (WBC) Count 8.3 thou/uL (4.8-10.8)
[2020-10-23 05:18] LABS: INR-International Normal Ratio 1.8; Prothrombin Time 20.8 sec (12.0-14.7)
[2020-10-23 05:19] LABS: BHCG - Serum Negative (NEGATIVE); Pregs Control Background? CLEAR/WHITE (CLR/WHITE); Pregs Control Bar Appear? YES (CONTROL BAR)
[2020-10-23 05:33] LABS: ALT (SGPT) 11 U/L (8-55); AST (SGOT) 16 U/L (5-34); Albumin 4.1 g/dL (3.5-5.0); Alkaline Phosphatase 39 U/L (40-110); Anion Gap 10 mmol/L (10-20); BUN (Urea Nitrogen) 12 mg/dL (7.0-18.7); Bilirubin, Total 0.4 mg/dL (0.2-1.2); Calc. Creatinine Clearance 0 mL/min (70-130); Calcium 8.9 mg/dL (7.8-10.44); Carbon Dioxide 23 mmol/L (22-29); Chloride 108 mmol/L (98-107); Globulin 3.2 g/dL (2.4-3.5); Glucose 90 mg/dL (70-105); Potassium 3.4 mmol/L (3.5-5.1); Protein, Total 7.3 g/dL (6.0-8.3); Sodium 138 mmol/L (136-145)
== END 2020-10-23 05:54 | disposition home or self-care (01) ==
LOC: ERS 03:44
DX: N93.9 Abnormal uterine and vaginal bleeding, unspecified (principal); R04.2 Hemoptysis; E78.5 Hyperlipidemia, unspecified; Z79.82 Long term (current) use of aspirin; Z79.899 Other long term (current) drug therapy
CPT/HCPCS: 36415; 71045; 80053; 84703; 85025; 85610; 85730; 93005

== ENCOUNTER 2020-12-15 10:07 | Emergency (ER) | payer MEDICARE, MEDICAID ==
[2020-12-15 10:38] LABS: #Basophils 0.1 thou/uL (0.0-0.2); #Eosinphils 0.1 thou/uL (0.0-0.7); #Monocytes 0.5 thou/uL (0.11-0.59); #Neutrophils 4.6 thou/uL (1.40-6.50); %Basophils 1.2 % (0.0-1.0); %Eosinophils 1.2 % (0.0-10.0); %Lymphocytes 27.1 % (21.0-51.0); %Monocytes 6.9 % (0.0-10.0); %Neutrophils 63.7 % (42.0-75.0); Hemoglobin 12.4 g/dL (12.0-16.0); Mean Corpuscular HGB CONC 31.8 g/dL (32.0-36.0); Mean Corpuscular Hemoglobin 29.1 pg (27.0-31.0); Mean Corpuscular Volume 91.6 fL (78.0-98.0); Mean Platelet Volume 6.8 fL (7.4-10.4); Platelet Count 442 thou/uL (130-400); RBC Distribution Width 12.2 % (11.5-14.5); Red Blood Cell (RBC) Count 4.25 mill/uL (4.20-5.40); White Blood Cell (WBC) Count 7.3 thou/uL (4.8-10.8)
[2020-12-15 10:59] LABS: INR-International Normal Ratio 1.5; PTT 35.4 sec (22.9-36.1); Prothrombin Time 17.8 sec (12.0-14.7)
[2020-12-15 11:07] LABS: ALT (SGPT) 11 U/L (8-55); AST (SGOT) 18 U/L (5-34); Albumin 4.3 g/dL (3.5-5.0); Alkaline Phosphatase 42 U/L (40-110); Anion Gap 11 mmol/L (10-20); BUN (Urea Nitrogen) 7 mg/dL (7.0-18.7); Bilirubin, Total 0.4 mg/dL (0.2-1.2); Calc. Creatinine Clearance 0 mL/min (70-130); Calcium 9.2 mg/dL (7.8-10.44); Carbon Dioxide 25 mmol/L (22-29); Chloride 107 mmol/L (98-107); Globulin 3.6 g/dL (2.4-3.5); Glucose 94 mg/dL (70-105); Potassium 3.5 mmol/L (3.5-5.1); Protein, Total 7.9 g/dL (6.0-8.3); Sodium 139 mmol/L (136-145)
[2020-12-15 13:27] LABS: BHCG - Serum Negative (NEGATIVE); Pregs Control Background? CLEAR/WHITE (CLR/WHITE); Pregs Control Bar Appear? YES (CONTROL BAR)
== END 2020-12-15 14:36 | disposition home or self-care (01) ==
LOC: ERS 10:07
DX: R04.2 Hemoptysis (principal); I65.21 Occlusion and stenosis of right carotid artery; I82.721 Chronic embolism and thrombosis of deep veins of right upper extremity; R51.9 Headache, unspecified; E78.5 Hyperlipidemia, unspecified; Z79.82 Long term (current) use of aspirin; Z79.52 Long term (current) use of systemic steroids; Z79.899 Other long term (current) drug therapy
CPT/HCPCS: 36415; 70450; 71275; 80053; 84484; 84703; 85025; 85610; 85652; 85730; 93005; Q9967

== ENCOUNTER 2021-05-12 11:24 | Emergency (ER) | payer MEDICARE, MEDICAID ==
[2021-05-12 12:06] LABS: #Eosinphils 0.1 thou/uL (0.0-0.7); #Lymphocytes 2.2 thou/uL (1.20-3.40); #Monocytes 0.5 thou/uL (0.11-0.59); #Neutrophils 4.5 thou/uL (1.40-6.50); %Basophils 0.4 % (0.0-1.0); %Eosinophils 0.9 % (0.0-10.0); %Lymphocytes 29.9 % (21.0-51.0); %Monocytes 6.5 % (0.0-10.0); %Neutrophils 62.2 % (42.0-75.0); Hemoglobin 12.7 g/dL (12.0-16.0); Mean Corpuscular HGB CONC 33.8 g/dL (32.0-36.0); Mean Corpuscular Hemoglobin 31.6 pg (27.0-31.0); Mean Corpuscular Volume 93.5 fL (78.0-98.0); Mean Platelet Volume 6.5 fL (7.4-10.4); Platelet Count 337 thou/uL (130-400); RBC Distribution Width 11.7 % (11.5-14.5); Red Blood Cell (RBC) Count 4.02 mill/uL (4.20-5.40); White Blood Cell (WBC) Count 7.3 thou/uL (4.8-10.8)
[2021-05-12 12:15] LABS: INR-International Normal Ratio 1.2
[2021-05-12 12:39] LABS: ALT (SGPT) 15 U/L (8-55); AST (SGOT) 17 U/L (5-34); Albumin 4.1 g/dL (3.5-5.0); Alkaline Phosphatase 42 U/L (40-110); Anion Gap 10 mmol/L (10-20); BUN (Urea Nitrogen) 11 mg/dL (7.0-18.7); Bilirubin, Total 0.3 mg/dL (0.2-1.2); Calc. Creatinine Clearance 0 mL/min (70-130); Calcium 9.4 mg/dL (7.8-10.44); Carbon Dioxide 22 mmol/L (22-29); Chloride 111 mmol/L (98-107); Globulin 3.2 g/dL (2.4-3.5); Glucose 87 mg/dL (70-105); Protein, Total 7.3 g/dL (6.0-8.3); Sodium 139 mmol/L (136-145)
[2021-05-12] MEDS ORDERED: methylPREDNISolone Sod Succ/PF 125 MG/2 ML VIAL ONE (13:35)
== END 2021-05-12 15:45 | disposition home or self-care (01) ==
LOC: ERS 11:24
DX: R42 Dizziness and giddiness (principal); I25.10 Atherosclerotic heart disease of native coronary artery without angina pectoris; E78.5 Hyperlipidemia, unspecified
CPT/HCPCS: 36416; 70450; 71045; 80053; 84484; 85025; 85610; 85730; 93005; 94760; 96374; J2930

== ENCOUNTER 2021-06-22 04:19 | Emergency (ER) | payer MEDICARE, MEDICAID | END 2021-06-22 06:49 | disposition left against medical advice (07) | LOC: ERS 04:19 | DX: Z53.21 Procedure and treatment not carried out due to patient leaving prior to being seen by health care provider (principal) ==

== ENCOUNTER 2021-08-12 19:05 | Emergency (ER) | payer MEDICARE, MEDICAID ==
[2021-08-12] MEDS ORDERED: Ondansetron PF 4 MG/2 ML Vial ONE (20:18)
[2021-08-12 21:15] LABS: #Eosinphils 0.1 thou/uL (0.0-0.7); #Lymphocytes 1.4 thou/uL (1.20-3.40); #Monocytes 0.4 thou/uL (0.11-0.59); #Neutrophils 7.4 thou/uL (1.40-6.50); %Basophils 0.3 % (0.0-1.0); %Eosinophils 0.6 % (0.0-10.0); %Monocytes 4.7 % (0.0-10.0); %Neutrophils 79.5 % (42.0-75.0); Hemoglobin 14.5 g/dL (12.0-16.0); Mean Corpuscular HGB CONC 33.3 g/dL (32.0-36.0); Mean Corpuscular Hemoglobin 31.7 pg (27.0-31.0); Mean Corpuscular Volume 95.1 fL (78.0-98.0); Mean Platelet Volume 6.7 fL (7.4-10.4); Platelet Count 355 thou/uL (130-400); RBC Distribution Width 12.2 % (11.5-14.5); Red Blood Cell (RBC) Count 4.58 mill/uL (4.20-5.40); White Blood Cell (WBC) Count 9.4 thou/uL (4.8-10.8)
[2021-08-12 21:19] LABS: Bilirubin Negative (Negative); Blood, Urine Negative (Negative); Clarity Clear (Clear); Glucose, Urine (Dipstick) Normal (Negative); Ketone, Urine 40 mg/dL (Negative); Leukocyte Negative Leu/uL (Negative); Nitrite Negative (Negative); Protein, Urine (Dipstick) 10 mg/dL (Neg-Trace); Specific Gravity, Urine 1.024 (1.002-1.036)
[2021-08-12 21:22] LABS: Pregnancy Test - Urine (BHCG) Negative (Negative); Pregu Control Background? CLEAR/WHITE (CLR/WHITE); Pregu Control Bar Appear? YES (CONTROL BAR); Specific Gravity 1.024 (1.002-1.036)
[2021-08-12 21:35] LABS: ALT (SGPT) 39 U/L (8-55); AST (SGOT) 24 U/L (5-34); Albumin 4.3 g/dL (3.5-5.0); Alkaline Phosphatase 59 U/L (40-110); Anion Gap 21 mmol/L (10-20); BUN (Urea Nitrogen) 9 mg/dL (7.0-18.7); Bilirubin, Total 0.5 mg/dL (0.2-1.2); Calc. Creatinine Clearance 0 mL/min (70-130); Calcium 9.7 mg/dL (7.8-10.44); Carbon Dioxide 16 mmol/L (22-29); Chloride 103 mmol/L (98-107); Globulin 4.3 g/dL (2.4-3.5); Glucose 94 mg/dL (70-105); Potassium 3.7 mmol/L (3.5-5.1); Protein, Total 8.6 g/dL (6.0-8.3); Sodium 136 mmol/L (136-145)
== END 2021-08-12 22:02 | disposition home or self-care (01) ==
LOC: ERS 19:05
DX: J11.1 Influenza due to unidentified influenza virus with other respiratory manifestations (principal); E86.0 Dehydration; I25.10 Atherosclerotic heart disease of native coronary artery without angina pectoris; E78.5 Hyperlipidemia, unspecified; Z86.73 Personal history of transient ischemic attack (TIA), and cerebral infarction without residual deficits; Z79.84 Long term (current) use of oral hypoglycemic drugs; Z79.4 Long term (current) use of insulin; Z79.899 Other long term (current) drug therapy
CPT/HCPCS: 80053; 81003; 81025; 85025; 96374; J2405

== ENCOUNTER 2022-03-20 23:28 | Emergency (ER) | payer MEDICARE | END 2022-03-21 00:26 | disposition home or self-care (01) | LOC: ERS 23:28 | DX: B34.9 Viral infection, unspecified (principal); I25.10 Atherosclerotic heart disease of native coronary artery without angina pectoris; E78.5 Hyperlipidemia, unspecified; Z20.822 Contact with and (suspected) exposure to COVID-19; Z86.73 Personal history of transient ischemic attack (TIA), and cerebral infarction without residual deficits | CPT/HCPCS: 87804 ×2; U0003; U0005; 99283 ==

== ENCOUNTER 2022-04-19 07:43 | Emergency (ER) | payer MEDICARE ==
[2022-04-19 09:58] LABS: SARS-CoV-2 NAA Rapid Test Not Detected (NotDetected)
== END 2022-04-19 10:20 | disposition home or self-care (01) ==
LOC: ERS 07:43
DX: J10.1 Influenza due to other identified influenza virus with other respiratory manifestations (principal); E78.5 Hyperlipidemia, unspecified; I25.10 Atherosclerotic heart disease of native coronary artery without angina pectoris; Z20.822 Contact with and (suspected) exposure to COVID-19
CPT/HCPCS: 99283

== ENCOUNTER 2022-05-12 16:28 | Emergency (ER) | payer MEDICARE ==
[2022-05-12] MEDS ORDERED: Morphine 4 MG/ML VIAL ONE (17:29)
[2022-05-12 18:07] LABS: Bilirubin Negative (Negative); Blood, Urine Negative (Negative); Clarity Clear (Clear); Glucose, Urine (Dipstick) Normal (Negative); Ketone, Urine Negative (Negative); Leukocyte 250 Leu/uL (Negative); Nitrite Negative (Negative); Protein, Urine (Dipstick) Negative (Neg-Trace); Specific Gravity, Urine 1.018 (1.002-1.036); Squamous Epithelial 0-3 HPF (0-3); Urobilinogen Normal mg/dL (Less than 2); WBC/HPF 21-50 HPF (0-3); pH, Urine 6.5 (5.0-9.0)
[2022-05-12 18:09] LABS: Bacteria/HPF 1+ HPF (None Seen)
[2022-05-12 18:32] LABS: Pregnancy Test - Urine (BHCG) Negative (Negative); Pregu Control Background? CLEAR/WHITE (CLR/WHITE); Pregu Control Bar Appear? YES (CONTROL BAR); Specific Gravity 1.018 (1.002-1.036)
== END 2022-05-12 18:56 | disposition home or self-care (01) ==
LOC: ERS 16:28
DX: N30.00 Acute cystitis without hematuria (principal); I25.10 Atherosclerotic heart disease of native coronary artery without angina pectoris; E78.5 Hyperlipidemia, unspecified; Z79.01 Long term (current) use of anticoagulants; Z79.82 Long term (current) use of aspirin; Z79.899 Other long term (current) drug therapy
CPT/HCPCS: 81003; 81015; 81025; 87086; 96372; 99283; J2270

== ENCOUNTER 2022-08-18 19:07 | Emergency (ER) | payer MEDICARE ==
[2022-08-18] MEDS ORDERED: Ketorolac Tromethamine 30 MG/ML VIAL ONE (19:51)
== END 2022-08-18 20:08 | disposition home or self-care (01) ==
LOC: ERS 19:07
DX: S39.012A Strain of muscle, fascia and tendon of lower back, initial encounter (principal); J06.9 Acute upper respiratory infection, unspecified; I25.10 Atherosclerotic heart disease of native coronary artery without angina pectoris; E78.5 Hyperlipidemia, unspecified; Z79.899 Other long term (current) drug therapy; Z79.82 Long term (current) use of aspirin; X58.XXXA Exposure to other specified factors, initial encounter
CPT/HCPCS: 96372; 99283; J1885

== ENCOUNTER 2022-08-31 17:57 | Emergency (ER) | payer MEDICARE ==
[2022-08-31 18:39] LABS: #Basophils 0.1 thou/uL (0.0-0.2); #Eosinphils 0.1 thou/uL (0.0-0.7); #Lymphocytes 2.8 thou/uL (1.20-3.40); #Monocytes 0.7 thou/uL (0.11-0.59); #Neutrophils 4.4 thou/uL (1.40-6.50); %Basophils 0.8 % (0.0-1.0); %Eosinophils 1.7 % (0.0-10.0); %Lymphocytes 34.6 % (21.0-51.0); %Neutrophils 53.9 % (42.0-75.0); Hemoglobin 12.6 g/dL (12.0-16.0); Mean Corpuscular HGB CONC 33.2 g/dL (32.0-36.0); Mean Corpuscular Hemoglobin 30.7 pg (27.0-31.0); Mean Corpuscular Volume 92.4 fl (78.0-98.0); Mean Platelet Volume 7.1 fL (7.4-10.4); Platelet Count 362 10x3/uL (130-400); RBC Distribution Width 11.8 % (11.5-14.5); Red Blood Cell (RBC) Count 4.11 mill/uL (4.20-5.40); White Blood Cell (WBC) Count 8.2 10x3/uL (4.8-10.8)
[2022-08-31 18:59] LABS: ALT (SGPT) 10 U/L (8-55); AST (SGOT) 21 U/L (5-34); Albumin 3.8 g/dL (3.5-5.0); Alkaline Phosphatase 59 U/L (40-110); Anion Gap 12 mmol/L (10-20); BUN (Urea Nitrogen) 15 mg/dL (7.0-18.7); Bilirubin, Total 0.2 mg/dL (0.2-1.2); Calc. Creatinine Clearance 0 mL/min (70-130); Calcium 8.9 mg/dL (7.8-10.44); Carbon Dioxide 22 mmol/L (22-29); Chloride 109 mmol/L (98-107); Estimated GFR 81; Globulin 3.6 g/dL (2.4-3.5); Glucose 101 mg/dL (70-105); Protein, Total 7.4 g/dL (6.0-8.3); Sodium 139 mmol/L (136-145)
== END 2022-08-31 20:33 | disposition left against medical advice (07) ==
LOC: ERS 17:57
DX: Z53.21 Procedure and treatment not carried out due to patient leaving prior to being seen by health care provider (principal)
CPT/HCPCS: 36415; 71045; 80053; 84484; 85025; 93005

== ENCOUNTER 2023-01-31 20:34 | Emergency (ER) | payer MEDICARE ==
[2023-01-31] MEDS ORDERED: Diazepam 5 MG TAB ONE (21:36)
[2023-01-31 22:34] LABS: #Eosinphils 0.1 thou/uL (0.0-0.7); #Monocytes 0.6 thou/uL (0.11-0.59); #Neutrophils 4.6 thou/uL (1.40-6.50); %Basophils 0.2 % (0.0-1.0); %Eosinophils 0.9 % (0.0-10.0); %Lymphocytes 36.2 % (21.0-51.0); %Monocytes 7.6 % (0.0-10.0); Hematocrit 37.5 % (36.0-47.0); Hemoglobin 12.8 g/dL (12.0-16.0); Mean Corpuscular HGB CONC 34.1 g/dL (32.0-36.0); Mean Corpuscular Hemoglobin 30.3 pg (27.0-31.0); Mean Corpuscular Volume 88.7 fl (78.0-98.0); Mean Platelet Volume 9.3 fL (7.4-10.4); Platelet Count 310 10x3/uL (130-400); RBC Distribution Width 12.6 % (11.5-14.5); Red Blood Cell (RBC) Count 4.23 mill/uL (4.20-5.40); White Blood Cell (WBC) Count 8.5 10x3/uL (4.8-10.8)
[2023-01-31 22:50] LABS: INR-International Normal Ratio 0.9; PTT 24.9 sec (22.9-36.1); Prothrombin Time 12.5 sec (12.0-14.7)
[2023-01-31 22:57] LABS: BHCG - Serum Negative (NEGATIVE); Pregs Control Background? CLEAR/WHITE (CLR/WHITE); Pregs Control Bar Appear? YES (CONTROL BAR)
[2023-01-31 22:59] LABS: ALT (SGPT) 29 U/L (8-55); AST (SGOT) 27 U/L (5-34); Albumin 4.1 g/dL (3.5-5.0); Alkaline Phosphatase 54 U/L (40-110); Anion Gap 12 mmol/L (10-20); BUN (Urea Nitrogen) 11 mg/dL (7.0-18.7); Bilirubin, Total 0.5 mg/dL (0.2-1.2); Calc. Creatinine Clearance 0 mL/min (70-130); Calcium 9.1 mg/dL (7.8-10.44); Carbon Dioxide 23 mmol/L (22-29); Chloride 108 mmol/L (98-107); Estimated GFR 80; Globulin 3.9 g/dL (2.4-3.5); Glucose 87 mg/dL (70-105); Potassium 3.7 mmol/L (3.5-5.1); Sodium 139 mmol/L (136-145)
[2023-01-31] MEDS ORDERED: HYDROcodone/Acetaminophen 5/325 mg Tablet ONE (23:33)
[2023-02-01] MEDS ORDERED: Iopamidol-370 76% 500 ML MDV (1 ML CHARGE) ONE (11:14)
== END 2023-02-01 02:26 | disposition home or self-care (01) ==
LOC: ERS 20:34
DX: M54.12 Radiculopathy, cervical region (principal); E78.00 Pure hypercholesterolemia, unspecified; Z79.82 Long term (current) use of aspirin
CPT/HCPCS: 71275; 80053; 84703; 85025; 85610; 85730; Q9967

== ENCOUNTER 2023-03-29 14:27 | Outpatient (CLI) | payer BC ==
[2023-03-29] MEDS ORDERED: Iopamidol 370 76% 100 ML VIAL ONE (15:57)
== END 2023-03-29 14:28 | disposition home or self-care (01) ==
LOC: CT 14:27
PROVIDERS: ATTEND Internal Medicine Rheumatology
DX: M31.4 Aortic arch syndrome [Takayasu] (principal); I65.23 Occlusion and stenosis of bilateral carotid arteries; I65.01 Occlusion and stenosis of right vertebral artery
CPT/HCPCS: 71275; 74174; Q9967

== ENCOUNTER 2023-04-18 20:21 | Emergency (ER) | payer BC, MEDICARE ==
[~2023-04-18 20:21] MED LIST changes: +Iopamidol 370 76% 100 ML VIAL ONE; -Iopamidol-370 76% 500 ML 1 ML ONE
[2023-04-18] MEDS ORDERED: diphenhydrAMINE 50 MG/ML VIAL ONE (21:54)
[2023-04-18] MEDS ORDERED: Metoclopramide HCl 10 MG/2 ML VIAL ONE (21:54)
[2023-04-18 22:49] LABS: #Eosinphils 0.1 thou/uL (0.0-0.7); #Monocytes 0.6 thou/uL (0.11-0.59); #Neutrophils 4.4 thou/uL (1.40-6.50); %Basophils 0.5 % (0.0-1.0); %Eosinophils 1.3 % (0.0-10.0); %Lymphocytes 31.3 % (21.0-51.0); %Monocytes 8.5 % (0.0-10.0); %Neutrophils 58.1 % (42.0-75.0); Hematocrit 37.1 % (36.0-47.0); Hemoglobin 12.4 g/dL (12.0-16.0); Mean Corpuscular HGB CONC 33.4 g/dL (32.0-36.0); Mean Corpuscular Hemoglobin 30.5 pg (27.0-31.0); Mean Corpuscular Volume 91.4 fl (78.0-98.0); Mean Platelet Volume 9.5 fL (7.4-10.4); Platelet Count 335 10x3/uL (130-400); RBC Distribution Width 12.1 % (11.5-14.5); Red Blood Cell (RBC) Count 4.06 mill/uL (4.20-5.40); White Blood Cell (WBC) Count 7.6 10x3/uL (4.8-10.8)
[2023-04-18 23:06] LABS: ALT (SGPT) 17 U/L (8-55); AST (SGOT) 25 U/L (5-34); Albumin 4.1 g/dL (3.5-5.0); Alkaline Phosphatase 49 U/L (40-110); Anion Gap 12 mmol/L (10-20); BUN (Urea Nitrogen) 12 mg/dL (7.0-18.7); Bilirubin, Total 0.3 mg/dL (0.2-1.2); Calc. Creatinine Clearance 0 mL/min (70-130); Calcium 8.7 mg/dL (7.8-10.44); Carbon Dioxide 22 mmol/L (22-29); Chloride 107 mmol/L (98-107); Estimated GFR 89; Globulin 3.2 g/dL (2.4-3.5); Glucose 80 mg/dL (70-105); Protein, Total 7.3 g/dL (6.0-8.3); Sodium 137 mmol/L (136-145)
[2023-04-18 23:10] LABS: Troponin I Less than 0.010 ng/mL (< 0.028)
[2023-04-18 23:14] LABS: BHCG - Serum Negative (NEGATIVE); Pregs Control Background? CLEAR/WHITE (CLR/WHITE); Pregs Control Bar Appear? YES (CONTROL BAR)
[2023-04-18 23:48] LABS: Pregnancy Test - Urine (BHCG) Negative (Negative); Pregu Control Background? CLEAR/WHITE (CLR/WHITE); Pregu Control Bar Appear? YES (CONTROL BAR)
[2023-04-18 23:52] LABS: Bacteria/HPF None Seen HPF (None Seen); Bilirubin Negative (Negative); Blood, Urine 1+ (Negative); CAUTI Indications for Culture Pelvic or flank pain; Clarity Turbid (Clear); Glucose, Urine (Dipstick) Normal (Negative); Ketone, Urine Negative (Negative); Leukocyte 250 Leu/uL (Negative); Nitrite Negative (Negative); Protein, Urine (Dipstick) Negative (Neg-Trace); RBC/HPF 0-3 HPF (0-3); Specific Gravity, Urine 1.015 (1.002-1.036); Urobilinogen Normal mg/dL (Less than 2)
[2023-04-18 23:54] LABS: Specific Gravity 1.015 (1.002-1.036)
[2023-04-18 23:55] LABS: Urine Culture Reflex Yes Yes
[2023-04-19 00:20] LABS: SARS-CoV-2 NAA Rapid Test Not Detected (NotDetected)
== END 2023-04-19 00:26 | disposition home or self-care (01) ==
LOC: ERS 20:21
DX: N39.0 Urinary tract infection, site not specified (principal); R51.9 Headache, unspecified
CPT/HCPCS: 70450; 71045; 71275; 80053; 81001; 81025; 83735; 84484; 84703; 85025; 85379; 87086; 93005; 96365; 96366; 96375; J1200; J2765; Q9967

== ENCOUNTER 2023-05-16 22:50 | Emergency (ER) | payer BC, MEDICARE ==
[2023-05-16] MEDS ORDERED: Ondansetron ODT 4 MG TAB ONE (23:57)
[2023-05-17 02:22] LABS: SARS-CoV-2 NAA Rapid Test Not Detected (NotDetected)
== END 2023-05-17 02:42 | disposition home or self-care (01) ==
LOC: ERS 22:50
DX: J06.9 Acute upper respiratory infection, unspecified (principal); Z20.822 Contact with and (suspected) exposure to COVID-19
CPT/HCPCS: 87081; 87430; 99283; Q0162

== ENCOUNTER 2023-06-17 07:18 | Emergency (ER) | payer BC, MEDICARE ==
[2023-06-17] MEDS ORDERED: Ketorolac Tromethamine 30 MG/ML VIAL ONE (08:02)
[2023-06-17] MEDS ORDERED: Clindamycin/D5W 900 MG in Premix 1 BAG IVPB SCH (08:15)
[2023-06-17] MEDS ORDERED: LORazepam 2 MG/ML SYR.(CARPUJECT) ONE (08:23)
[2023-06-17] MEDS ORDERED: Morphine 4 MG/ML VIAL ONE (08:23)
[2023-06-17] MEDS ORDERED: Lidocaine 1% w/Epinephrine 1:100K 20 ML VIAL ONE (08:50)
== END 2023-06-17 09:42 | disposition home or self-care (01) ==
LOC: ERS 07:18
DX: L02.214 Cutaneous abscess of groin (principal); L03.314 Cellulitis of groin
CPT/HCPCS: 10060; 96365; 96375; J1885; J2060; J2270; J3490

== ENCOUNTER 2023-08-02 16:14 | Emergency (ER) | payer BC, MEDICARE ==
[2023-08-02 18:54] LABS: #Eosinphils 0.1 thou/uL (0.0-0.7); #Monocytes 0.7 thou/uL (0.11-0.59); #Neutrophils 5.5 thou/uL (1.40-6.50); %Basophils 0.5 % (0.0-1.0); %Eosinophils 1.3 % (0.0-10.0); %Lymphocytes 26.9 % (21.0-51.0); %Monocytes 8.5 % (0.0-10.0); %Neutrophils 62.6 % (42.0-75.0); Hematocrit 39.5 % (36.0-47.0); Hemoglobin 12.7 g/dL (12.0-16.0); Mean Corpuscular HGB CONC 32.2 g/dL (32.0-36.0); Mean Corpuscular Hemoglobin 29.5 pg (27.0-31.0); Mean Corpuscular Volume 91.6 fl (78.0-98.0); Mean Platelet Volume 9.1 fL (7.4-10.4); Platelet Count 410 10x3/uL (130-400); RBC Distribution Width 12.4 % (11.5-14.5); Red Blood Cell (RBC) Count 4.31 mill/uL (4.20-5.40); White Blood Cell (WBC) Count 8.7 10x3/uL (4.8-10.8)
[2023-08-02 19:09] LABS: BHCG - Serum Negative (NEGATIVE); Pregs Control Background? CLEAR/WHITE (CLR/WHITE); Pregs Control Bar Appear? YES (CONTROL BAR)
[2023-08-02 19:19] LABS: ALT (SGPT) 13 U/L (8-55); AST (SGOT) 18 U/L (5-34); Albumin 4.1 g/dL (3.5-5.0); Alkaline Phosphatase 61 U/L (40-110); Anion Gap 10 mmol/L (10-20); BUN (Urea Nitrogen) 14 mg/dL (7.0-18.7); Bilirubin, Total 0.3 mg/dL (0.2-1.2); Calc. Creatinine Clearance 0 mL/min (70-130); Calcium 9.5 mg/dL (7.8-10.44); Carbon Dioxide 24 mmol/L (22-29); Chloride 105 mmol/L (98-107); Estimated GFR 65; Globulin 3.9 g/dL (2.4-3.5); Glucose 92 mg/dL (70-105); Sodium 135 mmol/L (136-145)
[2023-08-02 19:23] LABS: Troponin I Less than 0.010 ng/mL (< 0.028)
== END 2023-08-02 20:46 | disposition home or self-care (01) ==
LOC: ERS 16:14
DX: R53.1 Weakness (principal); I25.10 Atherosclerotic heart disease of native coronary artery without angina pectoris; D50.9 Iron deficiency anemia, unspecified; I49.9 Cardiac arrhythmia, unspecified; E78.00 Pure hypercholesterolemia, unspecified; I65.29 Occlusion and stenosis of unspecified carotid artery; M31.4 Aortic arch syndrome [Takayasu]; Z79.82 Long term (current) use of aspirin; Z79.899 Other long term (current) drug therapy; Z79.01 Long term (current) use of anticoagulants
CPT/HCPCS: 36415; 71045; 80053; 83880; 84484; 84703; 85025; 85379; 93005

== ENCOUNTER 2024-05-24 21:04 | Emergency (ER) | payer BC, MEDICARE ==
[2024-05-24] MEDS ORDERED: Mag-Al 1200 mg/1200 mg/30 ML UDCUP ONE (21:33)
[2024-05-24] MEDS ORDERED: Lidocaine Viscous Sol 2% 15 ml UD Cup ONE (21:33)
[2024-05-24] MEDS ORDERED: Famotidine/PF 20 mg/2ml Vial ONE (21:33)
[2024-05-24] MEDS ORDERED: Acetaminophen 500 MG TAB ONE (21:33)
== END 2024-05-24 22:30 | disposition home or self-care (01) ==
LOC: ERS 21:04
DX: R10.9 Unspecified abdominal pain (principal); R11.2 Nausea with vomiting, unspecified; R19.7 Diarrhea, unspecified; I25.10 Atherosclerotic heart disease of native coronary artery without angina pectoris
CPT/HCPCS: 87428; 93005; 96374; J3490